=== PATIENT | female | born 1995 | race Caucasian/White ===

== ENCOUNTER 2024-01-21 16:27 | Inpatient (IN) | payer MEDICAID ==
[~2024-01-21] VITALS: Ht 162.6 cm; Wt 73.0 kg
[2024-01-21 17:20] VITALS: PULSE 72; RESP 28; O2SAT 97
[2024-01-21] MEDS: ONDANSETRON HCL 4 MG/2 ML VIAL IM ONE (17:28)
[2024-01-21 18:06] LABS: Alanine Aminotransferase 19 U/L (7-40); Albumin 4.8 g/dL (3.2-4.8); Alkaline Phosphatase 52 U/L (46-116); Anion Gap 16 (5-15); Aspartate Aminotransferase 13 U/L (13-40); BUN/Creatinine Ratio 13.3 (10.0-20.0); Basophils # (auto) 0 10 ^3/uL (0-0.2); Basophils % (auto) 0.2 % (0.0-2.0); Bilirubin, Total 1.3 mg/dL (0.2-1.0); Blood Urea Nitrogen 8 mg/dL (9-23); Calcium 10.3 mg/dL (8.5-10.1); Carbon Dioxide 15 mmol/L (20-30); Chloride 106 mmol/L (98-107); Eosinophils # (auto) 0 10 ^3/uL (0-0.8); Glucose 133 mg/dL (74-106); Hematocrit 41.8 % (36.0-46.0); Hemoglobin 14.4 g/dL (12.2-16.2); Lymphocytes # (auto) 1.9 10 ^3/uL (0.4-5.4); Lymphocytes % (auto) 12.5 % (10.0-50.0); Mean Corpuscular Hemoglobin 29.3 pg (28.0-32.0); Mean Corpuscular Hgb Conc. 34.4 g/dL (32.0-36.0); Mean Corpuscular Volume 85.2 fL (80.0-100.0); Monocytes # (auto) 0.7 10 ^3/uL (0-1.3); Monocytes % (auto) 4.8 % (0.0-12.0); Neutrophils # (auto) 12.3 10 ^3/uL (1.6-8.6); Neutrophils % (auto) 82.5 % (37.0-80.0); Nucleated Red Blood Cells % 0.1 %; Potassium 3.2 mmol/L (3.5-5.1); Red Cell Distribution Width 13.7 % (11.8-14.3); Sodium 137 mmol/L (136-145); White Blood Cell 14.9 10^3/uL (4.4-10.8)
[2024-01-21 18:16] LABS: Urine Bacteria FEW /hpf (None Seen); Urine Blood 2+ /uL (Negative); Urine Clarity Turbid (Clear); Urine Color Yellow (Yellow); Urine Mucus FEW (None Seen); Urine Protein, UAD 2+ (Negative); Urine Urobilinogen 2 mg/dL (Negative); Urine WBC 3 /hpf (0 - 5)
[2024-01-21 18:17] LABS: Lactic Acid w/Reflex 2.8 mmol/L (0.4-2.0)
[2024-01-21] MEDS: SODIUM CHLORIDE 0.9% 1,000 ML IV ONE ×2 (18:27→21:15)
[2024-01-21 18:28] LABS: Amphetamine Screen, Urine Neg (NEGATIVE)
[2024-01-21 18:29] LABS: Barbiturate Scree,Urine Neg (NEGATIVE); Benzodiazephine Screen, Urine Neg (NEGATIVE); Cannabinoid Screen, Urine Pos (NEGATIVE); Cocaine Screen, Urine Neg (NEGATIVE); Opiate Scree,Urine Neg (NEGATIVE); Phencyclidine Screen, Urine Neg (NEGATIVE)
[2024-01-21] MEDS ORDERED: CEPHALEXIN 250 MG CAP PO ONE (18:45)
[2024-01-21 20:10] VITALS: PULSE 59; RESP 15; O2SAT 99
[2024-01-21] MEDS: POTASSIUM CHL 20 Meq TABLET PO ONE (21:15)
[2024-01-21] MEDS: NITROFURANTOIN 100 mg CAP PO ONE (21:15)
[2024-01-21] MEDS: ONDANSETRON HCL 4 MG/2 ML VIAL IV ONE (22:09)
[2024-01-21 22:21] LABS: Lactic Acid w/Reflex 2.1 mmol/L (0.4-2.0)
[2024-01-22] VITALS (8 sets, daily range): BP systolic 94–111; BP diastolic 54–63; PULSE 57–91; RESP 14–21; TEMP 97.9–98.4; O2SAT 98–100
[2024-01-22] MEDS ORDERED: MORPHINE SULFATE INJ 2 MG/ml SYRG IV PRN (00:30)
[2024-01-22] MEDS ORDERED: DOCUSATE SOD 100 MG CAP PO PRN (00:30)
[2024-01-22] MEDS ORDERED: NITROGLYCERIN 0.4 MG SL TAB SL PRN (00:30)
[2024-01-22] MEDS ORDERED: ACETAMINOPHEN 500 MG TAB PO PRN (01:00)
[2024-01-22] MEDS: cefTRIAXone 1GM/50ML D5W 50 ML IV SCH (01:12)
[2024-01-22] MEDS: SODIUM CHLORIDE 0.9% 1,000 ML IV SCH (01:14)
[2024-01-22] MEDS: cefTRIAXone 1GM/50ML D5W 50 ML IV ONE (01:15)
[2024-01-22] MEDS: ONDANSETRON HCL 4 MG/2 ML VIAL IV PRN (09:38)
[2024-01-22] MEDS ORDERED: PREN-96 PO (10:21)
[2024-01-22] MEDS ORDERED: PROMETHAZINE HCL 6.25 MG/5 ML ORAL SYRUP PO PRN (11:15)
[2024-01-22] MEDS: FOLIC ACID 1 MG, MULTIPLE VITAMIN 10 ML, MAGNESIUM SULF SDV 50% 8 MEQ, THIAMINE INJ 100... INJ SCH (15:02)
[2024-01-22] MEDS ORDERED: PROCHLORPERAZINE EDISYLATE 5 MG/ML 2ML VIAL IV PRN (18:15)
[2024-01-22] MEDS: FAMOTIDINE 20 MG TAB PO SCH (21:59)
[2024-01-23] VITALS (7 sets, daily range): BP systolic 100–120; BP diastolic 53–71; PULSE 60–98; RESP 16–22; TEMP 97.6–99.4; O2SAT 98–100
[2024-01-23] MEDS: ONDANSETRON HCL 4 MG/2 ML VIAL IV PRN (01:54)
[2024-01-23 06:12] LABS: Basophils # (auto) 0.1 10 ^3/uL (0-0.2); Basophils % (auto) 0.5 % (0.0-2.0); Eosinophils # (auto) 0 10 ^3/uL (0-0.8); Eosinophils % (auto) 0.1 % (0.0-7.0); Hemoglobin 12.2 g/dL (12.2-16.2); Lymphocytes # (auto) 2.5 10 ^3/uL (0.4-5.4); Lymphocytes % (auto) 23.4 % (10.0-50.0); Mean Corpuscular Hemoglobin 30.7 pg (28.0-32.0); Mean Corpuscular Hgb Conc. 35.8 g/dL (32.0-36.0); Mean Corpuscular Volume 85.7 fL (80.0-100.0); Monocytes # (auto) 0.9 10 ^3/uL (0-1.3); Monocytes % (auto) 7.9 % (0.0-12.0); Neutrophils # (auto) 7.3 10 ^3/uL (1.6-8.6); Neutrophils % (auto) 68.1 % (37.0-80.0); Nucleated Red Blood Cells % 0.1 %; Red Blood Cells 3.97 10^6/uL (4.0-5.20); Red Cell Distribution Width 13.4 % (11.8-14.3); White Blood Cell 10.7 10^3/uL (4.4-10.8)
[2024-01-23 06:35] LABS: Alanine Aminotransferase 15 U/L (7-40); Albumin 3.6 g/dL (3.2-4.8); Alkaline Phosphatase 37 U/L (46-116); Anion Gap 5 (5-15); Aspartate Aminotransferase < 8 U/L (13-40); BUN/Creatinine Ratio 8.8 (10.0-20.0); Bilirubin, Total 0.8 mg/dL (0.2-1.0); Blood Urea Nitrogen 5 mg/dL (9-23); Calcium 8.6 mg/dL (8.7-10.4); Carbon Dioxide 21 mmol/L (20-30); Chloride 110 mmol/L (98-107); Glucose 87 mg/dL (74-106); Potassium 3.6 mmol/L (3.5-5.1); Sodium 136 mmol/L (136-145); Total Protein 6.1 g/dL (5.7-8.2)
[2024-01-23] MEDS: PYRIDOXINE HCL 50 MG TAB PO SCH (14:00)
[2024-01-23] MEDS ORDERED: PROC10TA6 PO (16:29)
[2024-01-23] MEDS ORDERED: ONDA-155 PO (16:29)
== END 2024-01-23 21:10 | disposition home or self-care (01) | DRG 566 ==
LOC: ER 16:27 → TELE 01-22 00:46 → TELE-WESTW 01-22 09:43
PROVIDERS: ADMIT Nurse Practitioner Family; ATTEND Nurse Practitioner Family
DX: O21.1 Hyperemesis gravidarum with metabolic disturbance (principal); O34.31 Maternal care for cervical incompetence, first trimester; O23.41 Unspecified infection of urinary tract in pregnancy, first trimester; E86.0 Dehydration; O99.891 Other specified diseases and conditions complicating pregnancy; O99.281 Endocrine, nutritional and metabolic diseases complicating pregnancy, first trimester; N39.0 Urinary tract infection, site not specified; O26.21 Pregnancy care for patient with recurrent pregnancy loss, first trimester; Z3A.01 Less than 8 weeks gestation of pregnancy; Z88.0 Allergy status to penicillin; D72.823 Leukemoid reaction
CPT/HCPCS: 36415; 76705; 76801; 80053; 80307; 81001; 82550; 83605; 83690; 84484; 84702; 85025; 87040; G0378; J2405

== ENCOUNTER 2024-07-27 11:53 | Observation (INO) | payer MEDICAID ==
[~2024-07-27] VITALS: Ht 162.6 cm; Wt 64.9 kg
[~2024-07-27 11:53] MED LIST: ONDA-155 PO; PREN-96 PO; PROC10TA6 PO
[2024-07-27 12:47] LABS: Urine Bacteria None Seen /hpf (None Seen)
--- NOTE | 2024-07-27 12:55 | DVH ---
CLINICAL HISTORY: -induced hypertension. COMPARISON: None TECHNIQUE: biophysical profile was performed. Transabdominal sonographic images of the fetus we re obtained. FINDINGS: The fetus is in cephalic position. heart rate measures 168 BPM. Amniotic fluid index measures 16.2 cm. The placenta is fundal/anterior in position evidence of placenta previa or abruptio n seen. BPP profile is an overall score of 8/8, with 2/2 points for breathing, with at least one episode of breathing over a 30 second duration during a 30 minute observation, 2/2 points for m ovements, with 3 or more discrete body or limb movements, 2/2 points for tone, with one or more episodes of extremity extension with return to flexion, or opening and closing of hand, and 2/ 2 points for amniotic fluid, with at least 1 pocket of amniotic fluid that measures 2 cm in 2 perpend icular planes. IMPRESSION: BPP score of 8/8.
[2024-07-27 13:14] LABS: Basophils # (auto) 0.1 10 ^3/uL (0-0.2); Basophils % (auto) 0.5 % (0.0-2.0); Eosinophils # (auto) 0.2 10 ^3/uL (0-0.8); Hematocrit 33.6 % (36.0-46.0); Lymphocytes # (auto) 1.6 10 ^3/uL (0.4-5.4); Lymphocytes % (auto) 14.5 % (10.0-50.0); Mean Corpuscular Hemoglobin 27.8 pg (28.0-32.0); Mean Corpuscular Hgb Conc. 32.6 g/dL (32.0-36.0); Mean Corpuscular Volume 85.1 fL (80.0-100.0); Monocytes % (auto) 8.7 % (0.0-12.0); Neutrophils # (auto) 8.4 10 ^3/uL (1.6-8.6); Neutrophils % (auto) 74.3 % (37.0-80.0); Nucleated Red Blood Cells % 0.1 %; Platelet Count (auto) 239 10^3/uL (140-450); Red Blood Cells 3.94 10^6/uL (4.0-5.20); Red Cell Distribution Width 14.7 % (11.8-14.3); White Blood Cell 11.3 10^3/uL (4.4-10.8)
[2024-07-27 13:16] LABS: Protein, Urine 19.6 mg/dL (1-14)
[2024-07-27 13:17] LABS: Urine Blood Negative /uL (Negative); Urine Clarity Clear (Clear); Urine Color Light-Yellow (Yellow); Urine Protein, UAD Negative (Negative); Urine Specific Gravity 1.021 (1.001-1.035); Urine Squamous Epithelial Cell FEW /hpf (<5); Urine Urobilinogen Normal (Negative); Urine WBC 2 /hpf (0 - 5)
[2024-07-27 13:18] LABS: Creatinine, Urine 70.29 mg/dL (30.0-125.0); Urine Protein/Creatinine Ratio 0.28
[2024-07-27 13:25] LABS: Amphetamine Screen, Urine Neg (NEGATIVE); Barbiturate Scree,Urine Neg (NEGATIVE); Benzodiazephine Screen, Urine Neg (NEGATIVE); Cocaine Screen, Urine Neg (NEGATIVE); Opiate Scree,Urine Neg (NEGATIVE); Phencyclidine Screen, Urine Neg (NEGATIVE)
[2024-07-27 13:27] LABS: INR 0.92 (0.9-1.15); Partial Thromboplastin Time 24.5 SEC (24.5-34.5); Prothrombin Time 9.8 sec (9.3-11.8)
[2024-07-27 13:29] LABS: Alanine Aminotransferase 14 U/L (7-40); Albumin 3.4 g/dL (3.2-4.8); Alkaline Phosphatase 118 U/L (46-116); Anion Gap 3 (5-15); Aspartate Aminotransferase 14 U/L (13-40); BUN/Creatinine Ratio 13.7 (10.0-20.0); Bilirubin, Total 0.4 mg/dL (0.2-1.0); Blood Urea Nitrogen 7 mg/dL (9-23); Calcium 9.4 mg/dL (8.7-10.4); Carbon Dioxide 23 mmol/L (20-31); Chloride 109 mmol/L (98-107); Glucose 89 mg/dL (74-106); Potassium 3.7 mmol/L (3.5-5.1); Sodium 135 mmol/L (136-145); Uric Acid 3.9 mg/dL (3.1-7.8)
[2024-07-27 13:50] LABS: Cannabinoid Screen, Urine Neg (NEGATIVE)
--- NOTE | 2024-07-27 15:01 | DVHDS2 ---
Physician Discharge Progress N Final Diagnosis: pih ruled out Operations or Procedures: Operations or Procedures nst,sono,labs Condition on Discharge: Good Disposition: Home Discharge Instructions: Diet: Regular Activity: Light activity Medications: na Follow Up Care: Specialist: 4d Discharge Statement: "Patient was advised to return to the ER or call 911 if any headaches, dizziness, shortness of breath, chest pain, abdominal pain, bleeding, fevers, or worsening of medical condition. Patient was counseled about treatment plan, medications, possible side effects, patientverbalized understanding. All questions were answered to the best of my ability. This discharge took greater then 30 minutes in planning, reviewing documentation, counseling the patient, and discussing with other team members." SHOAIB SALDIVAR DO Jul 27, 2024 15:01
== END 2024-07-27 14:25 | disposition home or self-care (01) ==
LOC: LDRP 11:53
PROVIDERS: ADMIT Obstetrics & Gynecology; ATTEND Obstetrics & Gynecology
DX: O13.3 Gestational [pregnancy-induced] hypertension without significant proteinuria, third trimester (principal); Z3A.33 33 weeks gestation of pregnancy; Z79.899 Other long term (current) drug therapy; Z98.890 Other specified postprocedural states
CPT/HCPCS: 36415; 59025; 76818; 80053; 80307; 81001; 81002; 82570; 84156; 84550; 85025; 85610; 85730; 94760; G0378

== ENCOUNTER 2024-07-31 04:30 | Observation (INO) | payer MEDICAID ==
--- NOTE | 2024-07-31 09:58 | DVH ---
BIOPHYSICAL PROFILE HISTORY: PIH TECHNIQUE: Multiple transabdominal real-time grayscale sonographic images through the gravid uterus o f the fetus with duplex doppler color flow and M-mode spectral analysis FINDINGS: BIOPHYSICAL PROFILE: breathing score: 2 movement score: 2 tone score: 2 Quantitative ANNY score: 2 (ANNY: 14.2 cm.) Total score: 8/8 The cervix is not seen. Single live fetus in cephalic presentation. heart rate 132 beats per minute. Grade 2 anterior placenta without previa or abruption Biophysical profile score 8/8 corresponding to an PHILIPPE of 09/08/24 IMPRESSION: Biophysical profile score: 8/8
--- NOTE | 2024-07-31 10:29 | DVHDS2 ---
Physician Discharge Progress N Final Diagnosis: PIH RULED OUT Operations or Procedures: Operations or Procedures NST,SONPO Condition on Discharge: Good Disposition: Home Discharge Instructions: Diet: Cardiac 2g Na,low cholest Activity: No Restrictions, As Tolerated Medications: NA Follow Up Care: Specialist: 4D Discharge Statement: "Patient was advised to return to the ER or call 911 if any headaches, dizziness, shortness of breath, chest pain, abdominal pain, bleeding, fevers, or worsening of medical condition. Patient was counseled about treatment plan, medications, possible side effects, patientverbalized understanding. All questions were answered to the best of my ability. This discharge took greater then 30 minutes in planning, reviewing docu mentation, counseling the patient, and discussing with other team members." SHOAIB SALDIVAR DO Jul 31, 2024 10:29
== END 2024-07-31 09:55 | disposition home or self-care (01) ==
LOC: LDRP 08:05
PROVIDERS: ADMIT Obstetrics & Gynecology; ATTEND Obstetrics & Gynecology
DX: O13.3 Gestational [pregnancy-induced] hypertension without significant proteinuria, third trimester (principal); Z98.890 Other specified postprocedural states; Z79.899 Other long term (current) drug therapy; Z88.0 Allergy status to penicillin; Z3A.34 34 weeks gestation of pregnancy
CPT/HCPCS: 59025; 76818; 81002; 94760; G0378

== ENCOUNTER 2024-08-07 19:01 | Observation (INO) | payer MEDICAID ==
--- NOTE | 2024-08-07 19:42 | DVH ---
Procedure: US BIOPHYSICAL PROFILE 08/07/2024 07:10 PM Indication: PIH Comparison: US BIOPHYSICAL PROFILE on DOS: 07/31/24, US BIOPHYSICAL PROFILE on DOS: 07/27/24 Technique: Sonogram of gravid uterus utilizing grayscale and color techniques. FINDINGS: Single living intrauterine gestation. Presentation: Cephalic Placenta: Anterior, no previa or abruption heart rate: 143 bpm ANNY: 15.1 cm, DVP: 4.3 cm Maternal cervix: Not visualized Biophysical Profile: breathing score: 2 movement score: 2 tone: 2 Quantitative ANNY score: 2 Total score: 8/8 IMPRESSION: 1. Single living as above. 2. Biophysical profile score: 8/8.
--- NOTE | 2024-08-08 06:28 | DVHDS2 ---
Obstetrics Discharge Summary Obstetrics Discharge Summary Date of Admission: Aug 07, 2024 Date of Discharge: Aug 07, 2024 Reason For Admission: Observational/Evaluation (Medical Complications) Discharge Diagnosis: Others (PIH stable reasuring FHT maternal and reasurance) Discharge Information: Activity (Unrestricted), Diet, Medications (None), Instructions (Routine), Discharge to (Home), Discarge date (08/07/2024) DESI MELLO DO Aug 08, 2024 06:28
== END 2024-08-07 20:41 | disposition home or self-care (01) ==
LOC: LDRP 19:01
PROVIDERS: ADMIT Obstetrics & Gynecology; ATTEND Obstetrics & Gynecology
DX: O13.3 Gestational [pregnancy-induced] hypertension without significant proteinuria, third trimester (principal); O26.893 Other specified pregnancy related conditions, third trimester; R22.42 Localized swelling, mass and lump, left lower limb; Z3A.35 35 weeks gestation of pregnancy; Z79.899 Other long term (current) drug therapy; Z98.890 Other specified postprocedural states
CPT/HCPCS: 59025; 76818; 81002; 94760; G0378

== ENCOUNTER 2024-08-10 08:05 | Observation (INO) | payer MEDICAID ==
[~2024-08-10] VITALS: Ht 162.6 cm; Wt 112.5 kg
[2024-08-10 09:03] LABS: Urine Bacteria None Seen /hpf (None Seen)
[2024-08-10 09:21] LABS: Urine Blood Negative /uL (Negative); Urine Clarity Turbid (Clear); Urine Color Light-Yellow (Yellow); Urine Mucus FEW (None Seen); Urine Protein, UAD TRACE (Negative); Urine Specific Gravity 1.024 (1.001-1.035); Urine Squamous Epithelial Cell MOD /hpf (<5); Urine Urobilinogen Normal (Negative); Urine WBC 8 /HPF (0-5)
--- NOTE | 2024-08-10 09:43 | DVHDS2 ---
Physician Discharge Progress N Final Diagnosis: thc pos per hx pih Operations or Procedures: Operations or Procedures nsts,sono,labs Condition on Discharge: Good Disposition: Home Discharge Instructions: Diet: Regular Activity: No Restrictions, As Tolerated Medications: na Follow Up Care: Specialist: 1w Discharge Statement: "Patient was advised to return to the ER or call 911 if any headaches, dizziness, shortness of breath, chest pain, abdominal pain, bleeding, fevers, or worsening of medical condition. Patient was counseled about treatment plan, medications, possible side effects, patientverbalized understanding. All questions were answered to the best of my ability. This discharge took greater then 30 minutes in planning, reviewing documentati on, counseling the patient, and discussing with other team members." SHOAIB SALDIVAR DO Aug 10, 2024 09:43
[2024-08-10 09:51] LABS: Basophils # (auto) 0.1 10 ^3/uL (0-0.2); Basophils % (auto) 0.5 % (0.0-2.0); Eosinophils # (auto) 0.3 10 ^3/uL (0-0.8); Eosinophils % (auto) 2.3 % (0.0-7.0); Hematocrit 31.5 % (36.0-46.0); Hemoglobin 10.5 g/dL (12.2-16.2); Lymphocytes # (auto) 1.8 10 ^3/uL (0.4-5.4); Lymphocytes % (auto) 14.6 % (10.0-50.0); Mean Corpuscular Hemoglobin 27.7 pg (28.0-32.0); Mean Corpuscular Hgb Conc. 33.5 g/dL (32.0-36.0); Mean Corpuscular Volume 82.7 fL (80.0-100.0); Monocytes # (auto) 0.8 10 ^3/uL (0-1.3); Monocytes % (auto) 6.1 % (0.0-12.0); Neutrophils # (auto) 9.5 10 ^3/uL (1.6-8.6); Neutrophils % (auto) 76.5 % (37.0-80.0); Platelet Count (auto) 224 10^3/uL (140-450); Red Blood Cells 3.81 10^6/uL (4.0-5.20); Red Cell Distribution Width 14.6 % (11.8-14.3); White Blood Cell 12.4 10^3/uL (4.4-10.8)
--- NOTE | 2024-08-10 09:53 | DVH ---
Procedure: US BIOPHYSICAL PROFILE 08/10/2024 09:06 AM Indication: PIH Comparison: US BIOPHYSICAL PROFILE on DOS: 08/07/24, US BIOPHYSICAL PROFILE on DOS: 07/31/24, US BIOPHY SICAL PROFILE on DOS: 07/27/24 Technique: Sonogram of gravid uterus utilizing grayscale and color techniques. FINDINGS: Single living intrauterine gestation. Presentation: Cephalic Placenta: Anterior, grade 1 heart rate: 129 bpm ANNY: 19.6 cm, previously 15.1 cm Maternal cervix: Not visualized Biophysical Profile: breathing score: 2 movement score: 2 tone: 2 Quantitative ANNY score: 2 Total score: 8/8 IMPRESSION: 1. Single living as above. 2. Biophysical profile score: 8/8.
[2024-08-10 09:58] LABS: Protein, Urine 30.4 mg/dL (1-14)
[2024-08-10 10:01] LABS: Creatinine, Urine 132.37 mg/dL (30.0-125.0); Urine Protein/Creatinine Ratio 0.23
[2024-08-10 10:03] LABS: Alanine Aminotransferase 10 U/L (7-40); Albumin 3.3 g/dL (3.2-4.8); Anion Gap 9 (5-15); BUN/Creatinine Ratio 15.1 (10.0-20.0); Bilirubin, Total 0.4 mg/dL (0.2-1.0); Calcium 8.8 mg/dL (8.7-10.4); Carbon Dioxide 21 mmol/L (20-31); Chloride 106 mmol/L (98-107); Glucose 89 mg/dL (74-106); Potassium 3.5 mmol/L (3.5-5.1)
[2024-08-10 10:13] LABS: INR 0.91 (0.9-1.15); Partial Thromboplastin Time 25.4 SEC (24.5-34.5); Prothrombin Time 9.7 sec (9.3-11.8)
[2024-08-10 10:16] LABS: Alkaline Phosphatase 145 U/L (46-116); Aspartate Aminotransferase < 8 U/L (13-40); Blood Urea Nitrogen 8 mg/dL (9-23); Sodium 136 mmol/L (136-145); Total Protein 5.5 g/dL (5.7-8.2)
[2024-08-10 10:26] LABS: Uric Acid 4.9 mg/dL (3.1-7.8)
== END 2024-08-10 10:32 | disposition home or self-care (01) ==
LOC: UNDOADMOB 08:05 → LDRP 08:05 → UNDODISOB 10:32
PROVIDERS: ADMIT Obstetrics & Gynecology; ATTEND Obstetrics & Gynecology
DX: O13.3 Gestational [pregnancy-induced] hypertension without significant proteinuria, third trimester (principal); Z79.899 Other long term (current) drug therapy; Z3A.35 35 weeks gestation of pregnancy
CPT/HCPCS: 36415; 59025; 76818; 80053; 81001; 81002; 82570; 84156; 84550; 85025; 85610; 85730; 94760; G0378

== ENCOUNTER 2024-08-14 08:02 | Observation (INO) | payer MEDICAID ==
--- NOTE | 2024-08-14 08:49 | DVH ---
BIOPHYSICAL PROFILE HISTORY: pih Comparison Study: 08/10/2024 TECHNIQUE: Multiple real-time grayscale sonographic images through the gravid uterus of the fetus wi th duplex Doppler color flow and M-mode spectral analysis FINDINGS: BIOPHYSICAL PROFILE: breathing score: 2 movement score: 2 tone score: 2 Quantitative ANNY score: 2 (ANNY: 20.5 Cm.) Total score: 8 The cervix is not visualized Single live fetus in cephalic presentation. heart rate 140 beats per minute. Anterior placenta without previa or abruption IMPRESSION: Biophysical profile score: 8
--- NOTE | 2024-08-14 10:59 | DVHDS2 ---
Physician Discharge Progress N Final Diagnosis: pih Operations or Procedures: Operations or Procedures nst,sono Condition on Discharge: Good Disposition: Home Discharge Instructions: Diet: Regular Activity: No Restrictions, As Tolerated Medications: na Follow Up Care: Specialist: 3d Discharge Statement: "Patient was advised to return to the ER or call 911 if any headaches, dizziness, shortness of breath, chest pain, abdominal pain, bleeding, fevers, or worsening of medical condition. Patient was counseled about treatment plan, medications, possible side effects, patientverbalized understanding. All questions were answered to the best of my ability. This discharge took greater then 30 minutes in planning, reviewing documentation, counseling the patient, and discussing with other team members." SHOAIB SALDIVAR DO Aug 14, 2024 10:59
== END 2024-08-14 10:01 | disposition home or self-care (01) ==
LOC: LDRP 08:02
PROVIDERS: ADMIT Obstetrics & Gynecology; ATTEND Obstetrics & Gynecology
DX: O13.3 Gestational [pregnancy-induced] hypertension without significant proteinuria, third trimester (principal); Z98.890 Other specified postprocedural states; Z79.899 Other long term (current) drug therapy; Z3A.36 36 weeks gestation of pregnancy
CPT/HCPCS: 59025; 76818; 81002; 94760; G0378

== ENCOUNTER 2024-08-15 17:29 | Observation (INO) | payer MEDICAID ==
[~2024-08-15] VITALS: Ht 162.6 cm; Wt 130.0 kg
[2024-08-15 17:39] VITALS: BP 130/80; PULSE 109; RESP 16; O2SAT 97
--- NOTE | 2024-08-15 17:45 | ED.PDOC ---
History of Present Illness HPI Comments This is a 29-year-old female who is approximately 38 weeks who came in with chief complaint of shortness for breath as well as headache and nausea and vomiting. The patient's blood pressure has been somewhat high home. She states that it was 150/100. Upon arrival it was 130/80 the patient was the patient was Dr. Glynn Chief Complaint: Shortness of Breath Time Seen by MD: 17:31 Primary Care Provider: NONE Reviewed Notes: Nurses Notes, Medications, Allergies (Allergies listed above) Allergies: Coded Allergies: Amoxicillin (Verified Allergy, Unknown, 01/04/16) Erythromycin (Verified Allergy, Unknown, 08/07/24) Penicillins (Verified Allergy, Unknown, 01/04/16) Home Meds Active Scripts Prochlorperazine Maleate (Compazine) 10 Mg Tb, 1 TAB PO Q6HR PRN for 15 Days, #60 TAB 3 Refills Prov:PHILL HESTER RESIDENT 01/23/24 Ondansetron HCl (Ondansetron) 4 Mg Tab, 4 MG PO DAILYPRN PRN for 30 Days, #30 TAB 2 Refills Prov:PHILL HESTER RESIDENT 01/23/24 Reported Medications Vit W/ Ferrous Fumara ( One Daily) Daily Tab, 1 TAB PO DAILY, #30 TAB 11 Refills 01/22/24 Information Source: Patient, Significant Other Mode of Arrival: Wheelchair Severity: Moderate Timing: Hours Duration: Since onset Prehospital treatment: None Associated signs and symptoms Increase blood pressure as well as nausea, vomiting, abdominal pain and shortnes s a breath Past Medical History PAST MEDICAL HISTORY: Denies Surgical History: Denies all surgeries CLOTH BIN PACKER History: No Pertinent CLOTH B[employer] PACKER History Family History Family History: Family hx of DM, Family hx of Cancer Social History Smoker: Non-Smoker Alcohol: Denies ETOH Use Drugs: Denies Drug Use Lives In: Home Constitutional: denies: chills, diaphoresis, fatigue, fever, malaise, sweats, weakness, others EENTM: denies: blurred vision, double vision, ear bleeding, ear discharge, ear drainage, ear pain, ear ringing, eye pain, eye redness, hearing loss, mouth pain, mouth swelling, nasal discharge, nose bleeding, nose congestion, nose pain, photophobia, tearing, throat pain, throat swelling, voice changes, others Respiratory: reports: shortness of breath; denies: cough, hemoptysis, orthopnea, SOB at rest, SOB with excertion, stridor, wheezing, others Cardiovascular: denies: chest pain, dizzy spells, diaphoresis, Dyspnea on exertion, edema, irregular heart beat, left arm pain, lightheadedness, palpitations, PND, syncope, others Gastrointestinal: reports: abdominal pain, nausea, vomiting; denies: abdomen distended, blood streaked bowels, constipated, diarrhea, dysphagia, difficulty swallowing, hematemesis, melena, poor appetite, poor fluid intake, rectal bleeding, rectal pain, others Genitourinary: reports: ; denies: abnormal vagina bleeding, burning, dyspareunia, dysuria, flank pain, frequency, hematuria, incontinence, pain, vagina discharge, urgency, others Neurological: reports: headache; denies: dizziness, fainting, left sided numbne ss, left sided weakness, numbness, paresthesia, pre-existing deficit, right sided numbness, right sided weakness, seizure, speech problems, tingling, tremors, weakness, others Musculoskeletal: denies: back pain, gout, joint pain, joint swelling, muscle pain, muscle stiffness, neck pain, others Integumetry: denies: bruises, change in color, change in hair/nails, dryness, laceration, lesions, lumps, rash, wounds, others Allergic/Immunocompromised: denies: Difficulty Healing, Frequent Infections, Hives, Itching, others Hematologic/Lymphatic: denies: anemia, blood clots, easy bleeding, easy bruising, swollen glands, others Endocrine: denies: excessive hunger, excessive sweating, excessive thirst, excessive urination, flushing, intolerance to cold, intolerance to heat, unexplained weight gain, unexplained weight loss, others Psychiatric: denies: anxiety, bipolar disorder, depression, hopeless, panic disorder, schizophrenia, sleepless, suicidal, others Physical Exam General Appearance: Mild Distress, Obese HEENT: Normal ENT Inspection, Pharynx Normal, TMs Normal Neck: Full Range of Motion, Non-Tender, Normal, Normal Inspection Respiratory: Chest Non-Tender, Lungs Clear, No Accessory Muscle Use, No Respiratory Distress, Normal Breath Sounds Cardiovascular: No Edema, No JVD, No Murmur, No Gallop, Normal Peripheral Pulses, Regular Rate/Rhythm Breast Exam: Deferred Gastrointestinal: Non Tender, Other (Gravid uterus) Genitalia: Deferred Pelvic: Deferred Rectal: Deferred Extremities: No calf tenderness, Normal capillary refill, Normal inspection, Normal range of motion, Non-tender, No pedal edema Musculoskeletal : Apperance: Normal Neurologic: Alert, mosaic worker II-XII nml as Tested, No Motor Deficits, Normal Affect, Normal Mood, No Sensory Deficits Cerebellar Function: Normal Reflexes: Normal Skin: Dry, Normal Color, Warm Lymphatic: No Adenopathy Was a procedure done? Was a procedure done?: No Differential Dx Considerations may include: Abdominal pain in , vomiting, shortness for breath X-Ray, Labs, Meds, VS The patient was cleared from the emergency department's The patient was being discharged to labor and delivery at 38 weeks Time of 1ST Reevaluation: 17:44 Reevaluation 1ST: Improved Patient Education/Counseling: Diagnosis, Treatment, Prognosis Family Education/Counseling: Diagnosis, Treatment, Prognosis Departure 1 Departure Time of Disposition: 17:45 Impression: Primary Impression: Nausea and vomiting Qualified Codes: R11.2 - Nausea with vomiting, unspecified Additional Impression: Intrauterine Disposition: 01 HOME / SELF CARE / HOMELESS Condition: Fair Critical Care Note Critical Care Time?: No Stability Stability form required: No Heart Score Heart Score: Heart Score Response (Comments) Value History N/A 0 EKG N/A 0 Age N/A 0 Risk Factors N/A 0 Troponin N/A 0 Total 0 GERMAN DRUMMOND MD Aug 15, 2024 17:45
[2024-08-15 20:26] LABS: Basophils # (auto) 0.1 10 ^3/uL (0-0.2); Basophils % (auto) 0.5 % (0.0-2.0); Eosinophils # (auto) 0.2 10 ^3/uL (0-0.8); Eosinophils % (auto) 1.9 % (0.0-7.0); Hematocrit 30.1 % (36.0-46.0); Lymphocytes # (auto) 1.8 10 ^3/uL (0.4-5.4); Mean Corpuscular Hemoglobin 27.6 pg (28.0-32.0); Mean Corpuscular Hgb Conc. 33.4 g/dL (32.0-36.0); Mean Corpuscular Volume 82.8 fL (80.0-100.0); Monocytes # (auto) 0.9 10 ^3/uL (0-1.3); Monocytes % (auto) 8.3 % (0.0-12.0); Neutrophils # (auto) 8.1 10 ^3/uL (1.6-8.6); Neutrophils % (auto) 73.3 % (37.0-80.0); Platelet Count (auto) 260 10^3/uL (140-450); Red Blood Cells 3.63 10^6/uL (4.0-5.20); Red Cell Distribution Width 14.7 % (11.8-14.3)
[2024-08-15 20:29] LABS: Urine Bacteria FEW /hpf (None Seen); Urine Blood Negative /uL (Negative); Urine Clarity Turbid (Clear); Urine Color Light-Yellow (Yellow); Urine Mucus FEW (None Seen); Urine Protein, UAD TRACE (Negative); Urine Specific Gravity 1.022 (1.001-1.035); Urine Squamous Epithelial Cell FEW /hpf (<5); Urine Urobilinogen Normal (Negative); Urine WBC 2 /HPF (0-5)
[2024-08-15 20:42] LABS: INR 0.9 (0.9-1.15); Partial Thromboplastin Time 24.6 SEC (24.5-34.5); Prothrombin Time 9.6 sec (9.3-11.8)
[2024-08-15 20:45] LABS: Alanine Aminotransferase 14 U/L (7-40); Amylase 45 U/L (30-118); Anion Gap 8 (5-15); Aspartate Aminotransferase 15 U/L (13-40); BUN/Creatinine Ratio 16.1 (10.0-20.0); Calcium 9.5 mg/dL (8.7-10.4); Carbon Dioxide 21 mmol/L (20-31); Chloride 106 mmol/L (98-107); Glucose 97 mg/dL (74-106); Lipase 35 U/L (12-53); Potassium 3.7 mmol/L (3.5-5.1); Uric Acid 5.3 mg/dL (3.1-7.8)
[2024-08-15 20:46] LABS: Bilirubin, Total 0.4 mg/dL (0.2-1.0); Total Protein 5.8 g/dL (5.7-8.2)
[2024-08-15 20:52] LABS: Albumin 3.2 g/dL (3.2-4.8); Alkaline Phosphatase 146 U/L (46-116); Blood Urea Nitrogen 9 mg/dL (9-23); Sodium 135 mmol/L (136-145)
[2024-08-15 20:56] LABS: Protein, Urine 24.9 mg/dL (1-14)
[2024-08-15 20:59] LABS: Creatinine, Urine 124.9 mg/dL (30.0-125.0); Urine Protein/Creatinine Ratio 0.2
--- NOTE | 2024-08-15 21:25 | DVHDS2 ---
Physician Discharge Progress N Final Diagnosis: IUP 36 wk, acute N/V Gestational HTN Secondary Diagnosis: Encounter for surveillance Operations or Procedures: Operations or Procedures NST category 1 Labs reviewed, all WNL Condition on Discharge: Stable Disposition: Home Discharge Instructions: Diet: Regular Activity: Light activity Follow Up/Referral: as scheduled Medications: N/A Follow Up Care: Discharge Statement: "Patient was advised to return to the ER or call 911 if any headaches, dizziness, shortness of breath, chest pain, abdominal pain, bleeding, fevers, or worsening of medical condition. Patient was counseled about treatment plan, medications, possible side effects, patientverbalized understanding. All questions were answered to the best of my ability. This discharge took greater then 30 minutes in planning, reviewing docu mentation, counseling the patient, and discussing with other team members." ZITA PEDERSON DO Aug 15, 2024 21:25
== END 2024-08-15 22:09 | disposition home or self-care (01) ==
LOC: ER 17:29 → LDRP 17:48 → UNDODISOB 22:09 → LDRP 23:11
PROVIDERS: ADMIT Obstetrics & Gynecology; ATTEND Obstetrics & Gynecology
DX: O21.2 Late vomiting of pregnancy (principal); O13.3 Gestational [pregnancy-induced] hypertension without significant proteinuria, third trimester; Z88.1 Allergy status to other antibiotic agents; Z79.899 Other long term (current) drug therapy; Z3A.36 36 weeks gestation of pregnancy
CPT/HCPCS: 36415; 59025; 80053; 81001; 81002; 82150; 82570; 83605; 83690; 84156; 84550; 85025; 85610; 85730; 94762; G0378

== ENCOUNTER 2024-08-17 07:55 | Observation (INO) | payer MEDICAID ==
[~2024-08-17] VITALS: Ht 162.6 cm; Wt 117.9 kg
--- NOTE | 2024-08-17 08:41 | DVH ---
BIOPHYSICAL PROFILE HISTORY: PIH Comparison Study: 08/14/2019 TECHNIQUE: Multiple real-time grayscale sonographic images through the gravid uterus of the fetus wi th duplex Doppler color flow and M-mode spectral analysis FINDINGS: BIOPHYSICAL PROFILE: breathing score: 2 movement score: 2 tone score: 2 Quantitative ANNY score: 2 (ANNY: 19.7 Cm.) Total score: 8 The cervix is not visualized Single live fetus in cephalic presentation. heart rate 141 beats per minute. Grade 2, anterior placenta without previa or abruption IMPRESSION: Biophysical profile score: 8
--- NOTE | 2024-08-17 10:08 | DVHDS2 ---
Physician Discharge Progress N Final Diagnosis: pih ruled out,thc use in preg Operations or Procedures: Operations or Procedures nst,sono,labs Condition on Discharge: Good Disposition: Home Discharge Instructions: Diet: Regular Activity: Light activity Medications: na Follow Up Care: Specialist: w Discharge Statement: "Patient was advised to return to the ER or call 911 if any headaches, dizziness, shortness of breath, chest pain, abdominal pain, bleeding, fevers, or worsening of medical condition. Patient was counseled about treatment plan, medications, possible side effects, patientverbalized understanding. All questions were answered to the best of my ability. This discharge took greater then 30 minutes in planning, reviewing documentation, counseling the patient, and discussing with other team members." Visit Coding OBGYN Date of Service: Aug 17, 2024 Billing Provider: SHOAIB SALDIVAR DO EMERGENCY DEPARTMENT TECHNICIAN Common Visit Codes: 98546-[id number] OBS CARE (MOD), [id number] OBS CARE (HIGH) SHOAIB SALDIVAR DO Aug 17, 2024 10:08
== END 2024-08-17 09:42 | disposition home or self-care (01) ==
LOC: LDRP 07:58
PROVIDERS: ADMIT Obstetrics & Gynecology; ATTEND Obstetrics & Gynecology
DX: O99.323 Drug use complicating pregnancy, third trimester (principal); F12.90 Cannabis use, unspecified, uncomplicated; O26.893 Other specified pregnancy related conditions, third trimester; R51.9 Headache, unspecified; Z87.891 Personal history of nicotine dependence; Z3A.36 36 weeks gestation of pregnancy; Z88.0 Allergy status to penicillin; Z88.5 Allergy status to narcotic agent; Z79.899 Other long term (current) drug therapy
CPT/HCPCS: 59025; 76818; 81002; 94760; G0378

== ENCOUNTER 2024-08-21 08:07 | Observation (INO) | payer MEDICAID ==
--- NOTE | 2024-08-21 08:59 | DVH ---
BIOPHYSICAL PROFILE HISTORY: PIH TECHNIQUE: Multiple transabdominal real-time grayscale sonographic images through the gravid uterus of the fetus with duplex Doppler color flow and M-mode spectral analysis FINDINGS: BIOPHYSICAL PROFILE: breathing score: 2 movement score: 2 tone score: 2 Quantitative ANNY score: 2 (ANNY: 17.4 cm.) Total score: 8/8 Single live fetus in cephalic presentation. heart rate 136 beats per minute. Anterior placenta without previa or abruption IMPRESSION: 1. Biophysical profile score: 8/8
--- NOTE | 2024-08-21 12:44 | DVHDS2 ---
Physician Discharge Progress N Final Diagnosis: PIH,DRUG USE Operations or Procedures: Operations or Procedures NST,SONO Condition on Discharge: Good Disposition: Home Discharge Instructions: Diet: Regular Activity: No Restrictions, As Tolerated Follow Up/Referral: return to birthplace on Thursday at 7:00 am for Induction of labor. Medications: NA Follow Up Care: Specialist: INDUCTION THURSDAY Discharge Statement: "Patient was advised to return to the ER or call 911 if any headaches, dizziness, shortness of breath, chest pain, abdominal pain, bleeding, fevers, or worsening of medical condition. Patient was counseled about treatment plan, medications, possible side effects, patientverbalized understanding. All questions were answered to the best of my ability. This discharge took greater then 30 minutes in planning, reviewing documentation, counseling the patient, and discussing with other team members." Visit Coding OBGYN Date of Service: Aug 21, 2024 Billing Provider: SHOAIB SALDIVAR DO CONSTRUCTION HELPER Common Visit Codes: [id number]-[id number]/OBS DISCH DAY <30MIN SHOAIB SALDIVAR DO Aug 21, 2024 12:44
== END 2024-08-21 09:39 | disposition home or self-care (01) ==
LOC: LDRP 08:07
PROVIDERS: ADMIT Obstetrics & Gynecology; ATTEND Obstetrics & Gynecology
DX: O13.3 Gestational [pregnancy-induced] hypertension without significant proteinuria, third trimester (principal); Z3A.37 37 weeks gestation of pregnancy; Z79.899 Other long term (current) drug therapy; Z98.890 Other specified postprocedural states
CPT/HCPCS: 59025; 76818; 81002; 94760; G0378

== ENCOUNTER 2024-08-23 19:13 | Inpatient (IN) | payer MEDICAID ==
[~2024-08-23] VITALS: Ht 162.6 cm; Wt 117.9 kg
[2024-08-23] MEDS ORDERED: PHISODERM TOP SOLN 240ML BTL TOP PRN (20:00)
[2024-08-23] MEDS ORDERED: WITCH HAZEL-GLYCERIN PAD TOP PRN (20:00)
[2024-08-23] MEDS ORDERED: DERMOPLAST 60ML BOTTLE TOP PRN (20:00)
[2024-08-23] MEDS ORDERED: NALBUPHINE HCL 10 MG/1ml INJECTION IV PRN (20:00)
[2024-08-23] MEDS ORDERED: LIDOCAINE 2%HCL (LOCAL ANESTH.) INJ 20ML MDV IJ PRN (20:00)
[2024-08-23 20:47] LABS: Eosinophils # (auto) 0.2 10 ^3/uL (0-0.8); Lymphocytes # (auto) 1.6 10 ^3/uL (0.4-5.4); Monocytes # (auto) 0.9 10 ^3/uL (0-1.3); Nucleated Red Blood Cells % 0.1 %; Red Cell Distribution Width 14.9 % (11.8-14.3)
[2024-08-23 20:48] LABS: Basophils # (auto) 0.1 10 ^3/uL (0-0.2); Basophils % (auto) 0.6 % (0.0-2.0); Eosinophils % (auto) 1.9 % (0.0-7.0); Hematocrit 31.5 % (36.0-46.0); Hemoglobin 10.4 g/dL (12.2-16.2); Lymphocytes % (auto) 14.2 % (10.0-50.0); Mean Corpuscular Hemoglobin 26.7 pg (28.0-32.0); Mean Corpuscular Hgb Conc. 32.9 g/dL (32.0-36.0); Mean Corpuscular Volume 81.3 fL (80.0-100.0); Monocytes % (auto) 7.9 % (0.0-12.0); Neutrophils # (auto) 8.3 10 ^3/uL (1.6-8.6); Neutrophils % (auto) 75.4 % (37.0-80.0); Platelet Count (auto) 267 10^3/uL (140-450); Red Blood Cells 3.87 10^6/uL (4.0-5.20)
[2024-08-23 20:58] LABS: Urine Bacteria FEW /hpf (None Seen); Urine Blood Negative /uL (Negative); Urine Budding Yeast OCCASIONAL /hpf (None Seen); Urine Clarity Turbid (Clear); Urine Color Yellow (Yellow); Urine Hyaline Cast FEW /lpf (0 - 2); Urine Mucus FEW (None Seen); Urine Protein, UAD 2+ (Negative); Urine Specific Gravity 1.034 (1.001-1.035); Urine Squamous Epithelial Cell MOD /hpf (<5); Urine Urobilinogen 3 mg/dL (Negative); Urine WBC 2 /HPF (0-5)
[2024-08-23 21:06] LABS: Alanine Aminotransferase 13 U/L (7-40); Albumin 3.4 g/dL (3.2-4.8); Anion Gap 5 (5-15); Aspartate Aminotransferase 15 U/L (13-40); Bilirubin, Total 0.5 mg/dL (0.2-1.0); Calcium 9.3 mg/dL (8.7-10.4); Carbon Dioxide 25 mmol/L (20-31); Chloride 107 mmol/L (98-107); Glucose 75 mg/dL (74-106); INR 0.9 (0.9-1.15); Partial Thromboplastin Time 24.8 SEC (24.5-34.5); Potassium 3.6 mmol/L (3.5-5.1); Prothrombin Time 9.6 sec (9.3-11.8); Sodium 137 mmol/L (136-145); Total Protein 5.9 g/dL (5.7-8.2); Uric Acid 5.8 mg/dL (3.1-7.8)
[2024-08-23] MEDS: LACTATED RINGER'S 1,000 ML IV SCH (21:42)
[2024-08-23 21:55] LABS: Alkaline Phosphatase 157 U/L (46-116); Blood Urea Nitrogen 7 mg/dL (9-23)
[2024-08-23] MEDS ORDERED: miSOPROStol 50 MCG per PRE-CUT 1/2 TAB PO PRN (22:00)
--- NOTE | 2024-08-23 23:41 | DVH ---
OB ULTRASOUND, LIMITED CLINICAL INDICATION: pih TECHNIQUE: Multiple grayscale ultrasound and M-mode images were obtained of the pelvis for evaluation of intrauterine . COMPARISON: None FINDINGS: Biophysical profile 02/17 breathin movements: 2 tone: 2 Amniotic Fluid: 2, ANNY 19.0 cm heart rate: 132 position: Vertex Placenta location: Fundal IMPRESSION: Biophysical profile 02/17
[2024-08-24] MEDS ORDERED: LABE100T7 PO (00:20)
[2024-08-24] MEDS: LABETALOL HCL 200 MG TAB PO STA (00:40)
--- NOTE | 2024-08-24 01:41 | DVHDS2 ---
Physician Discharge Progress N Final Diagnosis: testing for preeclampsia Operations or Procedures: Operations or Procedures S: 29yo IUP@37.5wks presents for NST/BPP and possible IOL for preeclampsia. Denies UCs/LOF/VB/REAGAN/vision changes/RUQ pain. Endorses +FM. PNC with Dr. Glynn at [facility] OB, complicated by THC use, anemia, and preeclampsia. GTT wnl and GBS negative. OB hx: SAB x2. Pt reports last EFW in office on 08/19/24 was 7lbs+. Dating based 9wk sono not c/w LMP, PHILIPPE 09/08/24. Pt reports that she saw Dr. Pascual on 08/08/24 and that he changed her PHILIPPE to 08/27/24. O: VSS, except mild hypertension EFM: FHR 130s, moderate variability, +accels, -decels TOCO: irregular UCs SVE by RN: 0/0/-3 Dr. Pascual's report from 08/08/24 is not in the pts chart to review. Dr. Glynn was not notified of PHILIPPE change by Dr. Pascual. Labetalol 100mg PO x1 given Laboratory Tests Test 08/23/24 19:05 08/23/24 20:28 Range/Units Urine Color Yellow Yellow Urine Clarity Turbid H Clear Urine pH 6.0 5.0-9.0 Urine Specific [place] 1.034 1.001-1.035 Urine Protein 2+ H Negative Urine Ketones Trace Negative Urine Blood Negative Negative /uL Urine Nitrite Negative Negative Urine Bilirubin Negative Negative Urine Urobilinogen 3 H Negative mg/dL Urine Leukocyte Esterase 1+ Negative /uL Urine RBC 1 0 - 4 /hpf Urine Microscopic WBC 2 0-5 /HPF Urine Squamous Epithelial Cells Mod <5 /hpf Urine Bacteria Few H None Seen /hpf Urine Hyaline Casts Few 0 - 2 /lpf Urine Mucus Few None Seen Urine Yeast (Budding) Occasional None Seen /hpf Urine Creatinine 315.40 H 30.0-125.0 mg/dL Urine Protein/Creatinine Ratio 0.43 Urine Glucose Normal Normal mg/dL Urine Total Protein 135.9 H 1-14 mg/dL Urine Opiates Screen Neg NEGATIVE Urine Fentanyl Screen Neg NEGATIVE Urine Barbiturates Screen Neg NEGATIVE Urine Phencyclidine Screen Neg NEGATIVE Urine Amphetamines Screen Neg NEGATIVE Urine Benzodiazepines Screen Neg NEGATIVE Urine Cocaine Screen Neg NEGATIVE Urine Cannabinoids Screen Neg NEGATIVE White Blood Count 11.0 H 4.4-10.8 10^3/uL Red Blood Count 3.87 L 4.0-5.20 10^6/uL Hemoglobin 10.4 L 12.2-16.2 g/dL Hematocrit 31.5 L 36.0-46.0 % Mean Corpuscular Volume 81.3 80.0-100.0 fL Mean Corpuscular Hemoglobin 26.7 L 28.0-32.0 pg Mean Corpuscular Hemoglobin Concent 32.9 32.0-36.0 g/dL Red Cell Distribution Width 14.9 H 11.8-14.3 % Platelet Count 267 140-450 10^3/uL Mean Platelet Volume 7.4 6.9-10.8 fL Neutrophils (%) (Auto) 75.4 37.0-80.0 % Lymphocytes (%) (Auto) 14.2 10.0-50.0 % Monocytes (%) (Auto) 7.9 0.0-12.0 % Eosinophils (%) (Auto) 1.9 0.0-7.0 % Basophils (%) (Auto) 0.6 0.0-2.0 % Neutrophils # (Auto) 8.3 1.6-8.6 10 ^3/uL Lymphocytes # (Auto) 1.6 0.4-5.4 10 ^3/uL Monocytes # (Auto) 0.9 0-1.3 10 ^3/uL Eosinophils # (Auto) 0.2 0-0.8 10 ^3/uL Basophils # (Auto) 0.1 0-0.2 10 ^3/uL Nucleated Red Blood Cells 0.1 % Prothrombin Time 9.6 9.3-11.8 sec Prothrombin Time INR 0.90 0.9-1.15 Activated Partial Thromboplast Time 24.8 24.5-34.5 SEC Fibrinogen 532 H 177-375 mg/dL Sodium Level 137 136-145 mmol/L Potassium Level 3.6 3.5-5.1 mmol/L Chloride Level 107 98-107 mmol/L Carbon Dioxide Level 25 20-31 mmol/L Anion Gap 5 5-15 Blood Urea Nitrogen 7 L 9-23 mg/dL Creatinine 0.54 L 0.550-1.02 mg/dL Glomerular Filtration Rate Calc 129 >90 mL/min BUN/Creatinine Ratio 13.0 10.0-20.0 Serum Glucose 75 74-106 mg/dL Uric Acid 5.8 3.1-7.8 mg/dL Calcium Level 9.3 8.7-10.4 mg/dL Total Bilirubin 0.5 0.2-1.0 mg/dL Aspartate Amino Transferase (AST) 15 13-40 U/L Alanine Aminotransferase (ALT) 13 7-40 U/L Alkaline Phosphatase 157 H 46-116 U/L Total Protein 5.9 5.7-8.2 g/dL Albumin 3.4 3.2-4.8 g/dL Rapid Plasma Reagin Pending Treponema pallidum Ab (TP-PA) Pending Hepatitis C Antibody Negative Negative Vital Signs Date Time Temp Pulse Resp B/P (MAP) Pulse Ox O2 Delivery O2 Flow Rate FiO2 08/24/24 00:40 86 145/86 A: 29yo IUP@37.5wks Category I EFM Preeclampsia P: SBAR given to Dr. Glynn, D/C pt home with labetalol rx and have pt see Dr. Glynn in office on 08/24/24 at 0930 to decide POC. Rx sent for labetalol 100mg PO BID per Dr. Glynn's order. kick counts and Preeclampsia warning signs reviewed. Labor precautions given and when to return to the hospital. Other Interventions Other Interventions [place] [id number] Ph: [phone] DIAGNOSTIC IMAGING Diagnostic Imaging Report : [id number] Signed PATIENT: SOY GALVAN ACCT: [id number] UNIT: [id number] : 1995 LOC: [facility] ROOM / BED: [facility] / A AGE / SEX: 29 / F ADM STATUS: ADM IN SERVICE 19 ORDERING PHYSICIAN: JESSENIA JIMENEZ CNM PROCEDURE(s): BPP - BIOPHYSICAL PROFILE REASON: [facility] ORDER NUMBER(s): [id number], ACCESSION NUMBER(s): [id number] OB ULTRASOUND, LIMITED CLINICAL INDICATION: [facility] TECHNIQUE: Multiple grayscale ultrasound and M-mode images were obtained of the pelvis for evaluation of intrauterine . COMPARISON: None FINDINGS: Biophysical profile 02/17 breathin movements: 2 tone: 2 Amniotic Fluid: 2, ANNY 19.0 cm heart rate: 132 position: Vertex Placenta location: Fundal IMPRESSION: Biophysical profile 02/17 ATED BY: RENAE PERALTA MD DICTATED DATE/TIME: 08/23/242337 SIGNED BY: RENAE PERALTA MD SIGNED DATE/TIME: 08/23/242337 CC: Condition on Discharge: Stable Disposition: Home Discharge Instructions: Diet: Regular Activity: No Restrictions, As Tolerated Medications: see med list Follow Up Care: Specialist: f/u with Dr. Glynn in office on 08/24/24 at 0930 Discharge Statement: "Patient was advised to return to the ER or call 911 if any headaches, dizziness, shortness of breath, chest pain, abdominal pain, bleeding, fevers, or worsening of medical condition. Patient was counseled about treatment plan, medications, possible side effects, patientverbalized understanding. All questions were answered to the best of my ability. This discharge took greater then 30 minutes in planning, reviewing documentation, counseling the patient, and discussing with other team members." Visit Coding OBGYN Date of Service: Aug 24, 2024 Billing Provider: JESSENIA JIMENEZ CNM SUPPORT SERVICE TECH Common Visit Codes: [id number] OBS CARE (HIGH) JESSENIA JIMENEZ CNM Aug 24, 2024 01:41
[2024-08-24 13:09] LABS: Protein, Urine 135.9 mg/dL (1-14)
[2024-08-24 13:22] LABS: Urine Protein/Creatinine Ratio 0.43
[2024-08-24 13:25] LABS: Creatinine, Urine 315.4 mg/dL (30.0-125.0)
[2024-08-24 13:28] LABS: Barbiturate Scree,Urine Neg (NEGATIVE); Cannabinoid Screen, Urine Neg (NEGATIVE)
[2024-08-24 13:37] LABS: Amphetamine Screen, Urine Neg (NEGATIVE); Benzodiazephine Screen, Urine Neg (NEGATIVE); Cocaine Screen, Urine Neg (NEGATIVE); Opiate Scree,Urine Neg (NEGATIVE); Phencyclidine Screen, Urine Neg (NEGATIVE)
[2024-08-25 08:06] LABS: RPR Non Reactive (Non Reactive)
== END 2024-08-24 01:37 | disposition home or self-care (01) | DRG 566 ==
LOC: LDRP 19:13
PROVIDERS: ADMIT Obstetrics & Gynecology; ATTEND Obstetrics & Gynecology
DX: O14.93 Unspecified pre-eclampsia, third trimester (principal); O99.323 Drug use complicating pregnancy, third trimester; O99.013 Anemia complicating pregnancy, third trimester; F15.90 Other stimulant use, unspecified, uncomplicated; D64.9 Anemia, unspecified; Z3A.37 37 weeks gestation of pregnancy
CPT/HCPCS: 36415; 59025; 76818; 80053; 80307; 81001; 82570; 84156; 84550; 85025; 85384; 85610; 85730; 86592; 86780; 86803; 86850; 86900; 86901; 94760; 96360; 96361; G0378

== ENCOUNTER 2024-08-26 07:07 | Inpatient (IN) | payer MEDICAID ==
[~2024-08-26] VITALS: Ht 162.6 cm; Wt 120.2 kg
[~2024-08-26 07:07] MED LIST changes: +LABE100T7 PO; -ONDA-155 PO; -PROC10TA6 PO
--- NOTE | 2024-08-26 19:42 | DVH ---
EXAM: US BIOPHYSICAL PROFILE HISTORY: PIH COMPARISON: US BIOPHYSICAL PROFILE on DOS: 08/23/24, US BIOPHYSICAL PROFILE on DOS: 08/21/24, US BIOPHYS ICAL PROFILE on DOS: 08/17/24 TECHNIQUE: Multiple transabdominal real-time grayscale sonographic images through the gravid uterus of the fetus with duplex Doppler color flow and M-mode spectral analysis Findings/Impression: Single live intrauterine in vertex presentation with heart rate of 139 bpm. Biophysical profile was performed with 2 points for respirations, 2 points for movement, 2 points for tone and 2 points for amniotic fluid index. Biophysical profile score of 8/8. Amniotic fluid is within normal limits with ANNY 17.4 cm and MVP 5.6 cm. Normal ANNY (5-25 cm) Normal MVP (2-8 cm)
[2024-08-26 21:16] LABS: Eosinophils # (auto) 0.2 10 ^3/uL (0-0.8); Monocytes # (auto) 0.9 10 ^3/uL (0-1.3); White Blood Cell 10.9 10^3/uL (4.4-10.8)
[2024-08-26 21:19] LABS: Basophils # (auto) 0 10 ^3/uL (0-0.2); Basophils % (auto) 0.4 % (0.0-2.0); Hematocrit 31.6 % (36.0-46.0); Hemoglobin 10.4 g/dL (12.2-16.2); Lymphocytes # (auto) 1.8 10 ^3/uL (0.4-5.4); Lymphocytes % (auto) 16.3 % (10.0-50.0); Mean Corpuscular Hemoglobin 26.8 pg (28.0-32.0); Mean Corpuscular Volume 81.2 fL (80.0-100.0); Monocytes % (auto) 7.9 % (0.0-12.0); Neutrophils % (auto) 73.4 % (37.0-80.0); Nucleated Red Blood Cells % 0.2 %; Platelet Count (auto) 251 10^3/uL (140-450); Red Blood Cells 3.89 10^6/uL (4.0-5.20); Red Cell Distribution Width 15.4 % (11.8-14.3)
[2024-08-26 21:20] LABS: Urine Bacteria MOD /hpf (None Seen); Urine Blood Negative /uL (Negative); Urine Clarity Turbid (Clear); Urine Color Colorless (Yellow); Urine Protein, UAD 1+ (Negative); Urine Specific Gravity 1.009 (1.001-1.035); Urine Squamous Epithelial Cell MOD /hpf (<5); Urine Urobilinogen Normal (Negative); Urine WBC 4 /HPF (0-5); Urine pH 6.5 (5.0-9.0)
[2024-08-26 21:29] LABS: Protein, Urine 45.4 mg/dL (1-14)
[2024-08-26 21:31] LABS: Creatinine, Urine 39.97 mg/dL (30.0-125.0); Urine Protein/Creatinine Ratio 1.14
[2024-08-26 21:34] LABS: Alanine Aminotransferase 13 U/L (7-40); Albumin 3.5 g/dL (3.2-4.8); Anion Gap 6 (5-15); Aspartate Aminotransferase 14 U/L (13-40); BUN/Creatinine Ratio 12.3 (10.0-20.0); Calcium 9.5 mg/dL (8.7-10.4); Carbon Dioxide 25 mmol/L (20-31); Chloride 105 mmol/L (98-107); Glucose 80 mg/dL (74-106); Potassium 3.6 mmol/L (3.5-5.1); Sodium 136 mmol/L (136-145); Uric Acid 5.4 mg/dL (3.1-7.8)
[2024-08-26 21:35] LABS: Bilirubin, Total 0.5 mg/dL (0.2-1.0)
[2024-08-26 21:38] LABS: Alkaline Phosphatase 160 U/L (46-116); Blood Urea Nitrogen 7 mg/dL (9-23)
[2024-08-26] MEDS ORDERED: LIDOCAINE 2%HCL (LOCAL ANESTH.) INJ 20ML MDV IJ PRN (22:15)
[2024-08-26] MEDS ORDERED: NALBUPHINE HCL 10 MG/1ml INJECTION IM PRN (22:15)
[2024-08-26 22:49] LABS: INR 0.91 (0.9-1.15); Partial Thromboplastin Time 24.7 SEC (24.5-34.5); Prothrombin Time 9.7 sec (9.3-11.8)
[2024-08-26] MEDS: WITCH HAZEL-GLYCERIN PAD TOP PRN (22:55)
[2024-08-26] MEDS: DERMOPLAST 60ML BOTTLE TOP PRN (22:55)
[2024-08-26] MEDS: LABETALOL HCL 200 MG TAB PO ONE (22:56)
[2024-08-26] MEDS: PHISODERM TOP SOLN 240ML BTL TOP PRN (22:56)
[2024-08-26 22:59] LABS: Amphetamine Screen, Urine Neg (NEGATIVE); Barbiturate Scree,Urine Neg (NEGATIVE); Benzodiazephine Screen, Urine Neg (NEGATIVE); Cannabinoid Screen, Urine Neg (NEGATIVE); Cocaine Screen, Urine Neg (NEGATIVE); Opiate Scree,Urine Neg (NEGATIVE); Phencyclidine Screen, Urine Neg (NEGATIVE)
[2024-08-27] MEDS: LACTATED RINGER'S 1,000 ML IV SCH (00:32)
[2024-08-27] MEDS: miSOPROStol 50 MCG per PRE-CUT 1/2 TAB PO PRN (02:10)
[2024-08-27] MEDS ORDERED: hydrALAZINE HCL 20 MG/ML VL IV PRN (04:45)
[2024-08-27] MEDS: LABETALOL HCL 200 MG TAB PO SCH ×2 (07:46→21:30)
[2024-08-27] MEDS ORDERED: NALBUPHINE HCL 10 MG/1ml INJECTION IV PRN (08:30)
--- NOTE | 2024-08-27 08:41 | DVHPN2 ---
Chief Complaints Patient reports: No new complaints Nursing reports: No new complaints Objective Vitals Vital Signs Date Time Temp Pulse Resp B/P (MAP) Pulse Ox O2 Delivery O2 Flow Rate FiO2 08/27/24 07:46 107 136/90 Medications Current Medications Medications (Trade) Dose Ordered Sig/Hai Route PRN Reason Start Time Stop Time Status Last Admin Benzocaine (Dermoplast) 1 applic PRN PRN TOP PERINEAL AREA DISCOMFORT 08/26/24 22:15 08/26/24 22:55 Hydralazine HCl (Apresoline Injection) 5 mg Q20MP PRN IV SBP>160 or DBP>95 08/27/24 04:45 Labetalol HCl (Normodyne Tablet) 300 mg Q12HR PO 08/27/24 08:00 08/27/24 07:46 Lactated Ringer's 1,000 ml @ 125 mls/hr Q8H IV 08/26/24 22:15 08/27/24 08:20 Lidocaine HCl (Xylocaine) 20 ml ONCE PRN IJ PERINEAL AREA DISCOMFORT 08/26/24 22:15 Misoprostol (Cytotec) 50 mcg Q4HPRN PRN PO CERVICAL RIPENING 08/26/24 22:15 08/27/24 06:04 Nalbuphine HCl (Nubain) 10 mg Q4HP PRN IM MODERATE PAIN (4-6 PAIN SCALE) 08/26/24 22:15 Nalbuphine HCl (Nubain) 10 mg Q4HP PRN IV MODERATE PAIN (4-6 PAIN SCALE) 08/26/24 22:15 Nalbuphine HCl (Nubain) 10 mg Q4HP PRN IV MODERATE PAIN (4-6 PAIN SCALE) 08/27/24 08:30 Ondansetron HCl (Zofran) 4 mg Q4HPRN PRN IV NAUSEA / VOMITING 08/27/24 08:30 Sodium Lauryl Sulfate (Phisoderm) 240 ml PRN PRN TOP PERINEAL AREA DISCOMFORT 08/26/24 22:15 08/26/24 22:56 Witch Genie (Tucks) 1 pad PRN PRN TOP PERINEAL AREA DISCOMFORT 08/26/24 22:15 08/26/24 22:55 Others ve -2cm/60/-2 Studies Laboratory Tests 08/26/24 21:00 Test 08/26/24 21:00 Range/Units Serum Glucose 80 74-106 mg/dL Ass/Plan Assessment iol for pih Plan martinez inserted cytotec no 2 given Visit Coding OBGYN Date of Service: Aug 27, 2024 Billing Provider: SHOAIB SALDIVAR DO POLLUTION CONTROL TECHNICIAN Common Visit Codes: 58903-AHD/OBS SAME DATE (HIGH) POLLUTION CONTROL TECHNICIAN Consultation Codes: [id number] CONSULT <20MIN POLLUTION CONTROL TECHNICIAN Procedure Codes: 11892-60- NON-STRESS TEST SHOAIB SALDIVAR DO Aug 27, 2024 08:41
--- NOTE | 2024-08-27 08:46 | DVHHP2 ---
OB CC & HPI Date Date of Admission: Aug 26, 2024 Patient Identification: : 3 Para: 0 EDC: Sep 08, 2024 EGA: 38wks Chief Complaints: Reason for admission: induction of labor Indication for induction: medical complication (pih) Admission Nurse Assessment Rev: No History of Present Complaints pt is admitted for pih ,no report of bleeding or rom Past Medical History Cardiac: No pertinent Hx Pulmonary: No pertinent Hx Central Nervous System: No pertinent Hx GI: No pertinent Hx Hemotology/Oncology: No pertinent Hx Hepatobiliary: No pertinent Hx Psychiatric: No pertinent Hx Musculoskeletal: No pertinent Hx Rheumotologic: No pertinent Hx Infectious Disease: No peritnent Hx ENT: No pertinent Hx Renal/: No pertinent Hx Endocrine: No pertinent Hx Dermatology: No pertinent Hx Past Surgical History: No pertinent Hx OB History OB History Care: Good Care Ultrasounds: Normal mid trimester US Obstetrical Complications: Gestational Hypertension Medical Complications: None Allergies: Coded Allergies: Amoxicillin (Verified Allergy, Unknown, 08/23/24) Erythromycin (Verified Allergy, Unknown, 08/23/24) Penicillins (Verified Allergy, Unknown, 08/23/24) Home Meds Active Scripts Labetalol Hcl (Labetalol Hcl) 100 Mg Tab, 1 TAB PO BID, #60 TAB Prov:JESSENIA JIMENEZ CNM 08/24/24 Reported Medications Vit W/ Ferrous Fumara ( One Daily) Daily Tab, 1 TAB PO DAILY, #30 TAB 11 Refills 01/22/24 Discontinued Scripts Prochlorperazine Maleate (Compazine) 10 Mg Tb, 1 TAB PO Q6HR PRN for 15 Days, #60 TAB 3 Refills Prov:PHILL HESTER RESIDENT 01/23/24 Ondansetron HCl (Ondansetron) 4 Mg Tab, 4 MG PO DAILYPRN PRN for 30 Days, #30 TAB 2 Refills Prov:PHILL HESTER RESIDENT 01/23/24 Current Medications Current Medications Medications (Trade) Dose Ordered Sig/Hai Route PRN Reason Start Time Stop Time Status Last Admin Labetalol HCl (Normodyne Tablet) 300 mg Q12HR PO 08/27/24 08:00 08/27/24 07:46 Lactated Ringer's 1,000 ml @ 125 mls/hr Q8H IV 08/26/24 22:15 08/27/24 08:20 Nalbuphine HCl (Nubain) 10 mg Q4HP PRN IM MODERATE PAIN (4-6 PAIN SCALE) 08/26/24 22:15 Nalbuphine HCl (Nubain) 10 mg Q4HP PRN IV MODERATE PAIN (4-6 PAIN SCALE) 08/26/24 22:15 Witch Genie (Tucks) 1 pad PRN PRN TOP PERINEAL AREA DISCOMFORT 08/26/24 22:15 08/26/24 22:55 Sodium Lauryl Sulfate (Phisoderm) 240 ml PRN PRN TOP PERINEAL AREA DISCOMFORT 08/26/24 22:15 08/26/24 22:56 Benzocaine (Dermoplast) 1 applic PRN PRN TOP PERINEAL AREA DISCOMFORT 08/26/24 22:15 08/26/24 22:55 Misoprostol (Cytotec) 50 mcg Q4HPRN PRN PO CERVICAL RIPENING 08/26/24 22:15 08/27/24 06:04 Lidocaine HCl (Xylocaine) 20 ml ONCE PRN IJ PERINEAL AREA DISCOMFORT 08/26/24 22:15 Hydralazine HCl (Apresoline Injection) 5 mg Q20MP PRN IV SBP>160 or DBP>95 08/27/24 04:45 Nalbuphine HCl (Nubain) 10 mg Q4HP PRN IV MODERATE PAIN (4-6 PAIN SCALE) 08/27/24 08:30 Ondansetron HCl (Zofran) 4 mg Q4HPRN PRN IV NAUSEA / VOMITING 08/27/24 08:30 Family & Social History Family/Social History Blood Type: Unknown Rubella: immune RPR/VDRL: Negative GBS Status: Negative HBsAG: Negative Review of Systems Constitutional: No symptom reported Ears, Nose, & Throat: No symptom reported Eyes: No symptom reported Pulmonary/Respiratory: No symptom reported Cardiovascular: No symptom reported Gastrointestinal: No symptom reported Genitourinary: No symptom reported Musculoskeletal: No symptom reported Skin: No symptom reported Psychiatric: No symptom reported Endocrine: No symptom reported Hemotologic/Lymphatic: No symptom reported OB Admission Exam Physical Exam Vitals: Vital Signs Date Time Temp Pulse Resp B/P (MAP) Pulse Ox O2 Delivery O2 Flow Rate FiO2 08/27/24 07:46 107 136/90 HEENT: TMs Normal, Fontanelles Normal, Nasal Mucosa Normal, Eyes non-injected, Oropharynx Normal, PERRLA, Moist Membranes, EOMI Heart: Rhythm Normal Lungs: Clear Abdomen: Non tender Extremities: Normal Reflexes: Normal Cervical Dilatation: 2cm Effacement: 50% Station: -2 Membranes: Intact Heart Rate: 130's Accelerations: Accelerations Present Decelerations: No Decelerations Short Term Variability: Present Pasteuriser Operator Variability: Average (6-25) Contractions on Admission: 6-10 Minutes Apart Intensity: Mild OB Plan Plan Admitting Diagnosis: iup at 38 wks induction of labor for PIH morbid oesity Plan: Expectant Management, Induction Induction Methd: Misoprostol protocol Other Plan: informed consent obtained Visit Coding OBGYN Date of Service: Aug 27, 2024 Billing Provider: SHOAIB SALDIVAR DO CERTIFIED JUVENILE PROBATION OFFICER Common Visit Codes: 79689-UDS/OBS SAME DATE (HIGH) CERTIFIED JUVENILE PROBATION OFFICER Procedure Codes: 73485-54- NON-STRESS TEST SHOAIB SALDIVAR DO Aug 27, 2024 08:46
[2024-08-27] MEDS: ONDANSETRON HCL 4 MG/2 ML VIAL IV PRN (08:48)
[2024-08-27] MEDS: NALBUPHINE HCL 10 MG/1ml INJECTION IV PRN (08:50)
[2024-08-27] MEDS ORDERED: MAGNESIUM SULFATE 100 ML IV ONE (10:30)
[2024-08-27] MEDS ORDERED: MAGNESIUM SULFATE 40MG/ML 1,000 ML IV SCH (10:30)
[2024-08-27] MEDS ORDERED: LACTATED RINGER'S 1,000 ML IV SCH (10:30)
[2024-08-27] MEDS ORDERED: TERBUTALINE SULFATE 1 MG/ML 1ML VIAL SC PRN (10:30)
[2024-08-27] MEDS ORDERED: LIDOCAINE HCL 2 %PF INJ 10ML AMP IJ ONE (11:45)
[2024-08-27] MEDS: LIDOCAINE 2% (LOCAL ANESTH.) PF 5ml SDV ONE (12:09)
[2024-08-27] MEDS: ROPIVACAINE HCL 200 ML ONE (12:48)
[2024-08-27] MEDS: LACT. RINGERS/OXYTOCIN 20UNITS 1,000 ML IV SCH (14:46)
[2024-08-27] MEDS: LIDOCAINE 2% (LOCAL ANESTH.) PF 5ml SDV IJ ONE (17:51)
--- NOTE | 2024-08-27 20:29 | DVHPN2 ---
OB Labor Progress Note Date and Time Seen Date Seen: Aug 27, 2024 Time Seen: 19:11 Subjective Patient reports: No new complaints Monitoring Method Monitoring Method: External Heart Rate Heart Rate Baseline: 140 Heart Rate Variability: Minimal Presence of FHR Accelerations: No Presence of FHR Decelerations: No Are all 5 Components of the FH: Yes Contractions Contractions Frequency: Other (1-2min) Duration of Contraction: 60 Contractions Intensity: Moderate Contractions Resting Tone: Relaxed Membranes Membranes: Intact Vaginal Exam Vag Exam Deferred: No Vaginal Exam Dilation: 5 Vaginal Exam Effacement: 70 Vaginal Exam Station: -2 Vaginal Exam Presentation: VTX Vaginal Exam Show: Small Medications Medications - Pitocin: Yes Medication - Epidural: Yes Lab Results Lab Results Vital Signs Date Time Temp Pulse Resp B/P (MAP) Pulse Ox O2 Delivery O2 Flow Rate FiO2 08/28/24 17:04 18 92 Room Air 08/28/24 17:03 105 113/52 (72) 08/28/24 16:30 2.0 08/28/24 15:29 98.7 98.7 08/27/24 23:42 97 I & O 08/28/24 07:00 Intake Total 750 ml Output Total 725 ml Balance 25 ml Other 750 ml Output Urine Total 725 ml Current Medications Medications (Trade) Dose Ordered Sig/Hai Start Time Stop Time Status Last Admin Dose Admin Labetalol HCl (Normodyne Tablet) 200 mg ONCE ONCE 08/26/24 22:15 08/26/24 22:17 DC 08/26/24 22:56 200 MG Labetalol HCl (Normodyne Tablet) 300 mg Q12HR 08/27/24 08:00 08/27/24 17:31 DC 08/27/24 07:46 300 MG Lactated Ringer's 1,000 ml @ 125 mls/hr Q8H 08/26/24 22:15 08/28/24 14:17 125 MLS/HR Nalbuphine HCl (Nubain) 10 mg Q4HP PRN 08/26/24 22:15 08/28/24 02:58 DC Nalbuphine HCl (Nubain) 10 mg Q4HP PRN 08/26/24 22:15 08/28/24 02:58 DC 08/27/24 08:50 10 MG Witch Genie (Tucks) 1 pad PRN PRN 08/26/24 22:15 08/26/24 22:55 1 PAD Sodium Lauryl Sulfate (Phisoderm) 240 ml PRN PRN 08/26/24 22:15 08/26/24 22:56 240 ML Benzocaine (Dermoplast) 1 applic PRN PRN 08/26/24 22:15 08/26/24 22:55 1 APPLIC Misoprostol (Cytotec) 50 mcg Q4HPRN PRN 08/26/24 22:15 08/28/24 02:58 DC 08/27/24 06:04 50 MCG Lidocaine HCl (Xylocaine) 20 ml ONCE PRN 08/26/24 22:15 08/28/24 02:58 DC Hydralazine HCl (Apresoline Injection) 5 mg Q20MP PRN 08/27/24 04:45 Nalbuphine HCl (Nubain) 10 mg Q4HP PRN 08/27/24 08:30 08/27/24 08:40 DC Ondansetron HCl (Zofran) 4 mg Q4HPRN PRN 08/27/24 08:30 08/27/24 23:11 DC 08/27/24 08:48 4 MG Oxytocin 1,000 ml @ 6 ml/hr Q24H 08/27/24 10:30 08/28/24 02:58 DC 08/27/24 14:46 3 ML/HR Terbutaline Sulfate (Brethine Inj) 0.25 mg ONCE PRN 08/27/24 10:30 08/28/24 02:58 DC Oxytocin 500 ml @ 999 mls/hr Q31M ONCE 08/27/24 10:30 08/27/24 11:00 DC Oxytocin 500 ml @ 125 mls/hr Q4H ONCE 08/27/24 11:00 08/27/24 14:59 DC Lactated Ringer's 1,000 ml @ 75 mls/hr [id number] 08/27/24 10:30 08/28/24 02:58 DC Magnesium Sulfate 1,000 ml @ 50 mls/hr Q20H 08/27/24 10:30 08/28/24 02:58 DC Magnesium Sulfate 100 ml @ 300 mls/hr ONCE ONCE 08/27/24 10:30 08/28/24 05:21 DC Ephedrine Sulfate (ePHEDrine SULFATE) 10 mg PRN ONCE 08/27/24 11:45 08/27/24 12:03 DC Lidocaine HCl (Xylocaine-Pf 2% Injection) 1 ml ONCE ONCE 08/27/24 11:45 08/27/24 17:07 DC Lidocaine HCl 5 ml ONCE ONCE 08/27/24 17:15 08/27/24 17:28 DC 08/27/24 17:51 5 ML Labetalol HCl (Normodyne Tablet) 300 mg Q12H 08/27/24 20:00 08/28/24 03:22 DC 08/27/24 21:30 300 MG Clindamycin Phosphate 50 ml @ 50 mls/hr ONCE ONCE 08/27/24 21:00 08/27/24 21:59 DC 08/27/24 21:23 50 MLS/HR Sodium Chloride 300 ml @ 0 mls/hr Q0M ONCE 08/27/24 21:30 08/27/24 21:31 DC 08/28/24 02:43 300 MLS/HR Sodium Chloride 1,000 ml @ 100 mls/hr Q10H 08/27/24 21:30 08/28/24 02:58 DC 08/28/24 02:45 100 MLS/HR Oxytocin 1,000 ml @ 125 mls/hr Q8H ONCE 08/27/24 22:00 08/28/24 02:58 DC Ondansetron HCl (Zofran) 4 mg Q4HP PRN 08/27/24 22:00 [place] Gum (Chewing Gum) 1 gum ONCE ONCE 08/27/24 22:00 08/27/24 22:01 DC Ondansetron HCl (Zofran) 4 mg Q4HP PRN 08/27/24 23:15 08/27/24 23:12 DC Naloxone HCl (Narcan) 0.2 mg Q5M PRN 08/27/24 23:15 08/27/24 23:21 DC Hydromorphone HCl (Dilaudid Injection) 0.5 mg Q15M PRN 08/27/24 23:15 08/27/24 23:46 DC 08/27/24 23:22 0.5 MG Ketorolac Tromethamine (Toradol Injection) 30 mg Q6HP PRN 08/27/24 23:15 08/28/24 02:58 DC Acetaminophen (Ofirmev) 1,000 mg ONCE ONCE 08/27/24 23:15 08/27/24 23:16 DC 08/27/24 23:19 1,000 MG Clindamycin Phosphate 50 ml @ 50 mls/hr Q8HR 08/28/24 05:30 08/28/24 14:13 50 MLS/HR Acetaminophen (Ofirmev) 1,000 mg ONCE PRN 08/28/24 07:00 Labetalol HCl (Normodyne Tablet) 300 mg Q12H 08/28/24 09:30 08/28/24 09:05 300 MG Hydromorphone HCl (Dilaudid Injection) 1 mg Q3HPRN PRN 08/28/24 05:00 Lactated Ringer's 1,000 ml @ 75 mls/hr [id number] 08/28/24 05:30 Magnesium Sulfate 1,000 ml @ 50 mls/hr Q20H 08/28/24 07:30 08/28/24 07:12 50 MLS/HR Magnesium Sulfate 100 ml @ 300 mls/hr ONCE ONCE 08/28/24 07:00 08/28/24 07:19 DC 08/28/24 07:03 300 MLS/HR Lorazepam (Ativan Inj) 4 mg ONCE ONCE 08/28/24 07:00 08/28/24 07:01 DC Laboratory Tests Test 08/28/24 16:57 08/28/24 06:31 08/26/24 21:00 08/26/24 19:05 Range/Units Magnesium Lvl (Mg Sulfate Therapy) 4.22 4.0-7.1 mg/dL White Blood Count 22.9 H 4.4-10.8 10^3/uL Red Blood Count 3.36 L 4.0-5.20 10^6/uL Hemoglobin 9.0 L 12.2-16.2 g/dL Hematocrit 27.4 L 36.0-46.0 % Mean Corpuscular Volume 81.7 80.0-100.0 fL Mean Corpuscular Hemoglobin 26.8 L 28.0-32.0 pg Mean Corpuscular Hemoglobin Concent 32.8 32.0-36.0 g/dL Red Cell Distribution Width 15.3 H 11.8-14.3 % Platelet Count 246 140-450 10^3/uL Mean Platelet Volume 7.7 6.9-10.8 fL Neutrophils (%) (Auto) 92.5 H 37.0-80.0 % Lymphocytes (%) (Auto) 3.5 L 10.0-50.0 % Monocytes (%) (Auto) 3.5 0.0-12.0 % Eosinophils (%) (Auto) 0.0 0.0-7.0 % Basophils (%) (Auto) 0.5 0.0-2.0 % Neutrophils # (Auto) 21.2 H 1.6-8.6 10 ^3/uL Lymphocytes # (Auto) 0.8 0.4-5.4 10 ^3/uL Monocytes # (Auto) 0.8 0-1.3 10 ^3/uL Eosinophils # (Auto) 0 0-0.8 10 ^3/uL Basophils # (Auto) 0.1 0-0.2 10 ^3/uL Nucleated Red Blood Cells 0.0 % Magnesium Level 1.5 L 1.6-2.6 mg/dL Prothrombin Time 9.7 9.3-11.8 sec Prothrombin Time INR 0.91 0.9-1.15 Activated Partial Thromboplast Time 24.7 24.5-34.5 SEC Sodium Level 136 136-145 mmol/L Potassium Level 3.6 3.5-5.1 mmol/L Chloride Level 105 98-107 mmol/L Carbon Dioxide Level 25 20-31 mmol/L Anion Gap 6 5-15 Blood Urea Nitrogen 7 L 9-23 mg/dL Creatinine 0.57 0.550-1.02 mg/dL Glomerular Filtration Rate Calc 127 >90 mL/min BUN/Creatinine Ratio 12.3 10.0-20.0 Serum Glucose 80 74-106 mg/dL Uric Acid 5.4 3.1-7.8 mg/dL Calcium Level 9.5 8.7-10.4 mg/dL Total Bilirubin 0.5 0.2-1.0 mg/dL Aspartate Amino Transferase (AST) 14 13-40 U/L Alanine Aminotransferase (ALT) 13 7-40 U/L Alkaline Phosphatase 160 H 46-116 U/L Total Protein 6.0 5.7-8.2 g/dL Albumin 3.5 3.2-4.8 g/dL Rapid Plasma Reagin Pending Treponema pallidum Ab (TP-PA) Pending Hepatitis C Antibody Negative Negative Urine Color Colorless Yellow Urine Clarity Turbid H Clear Urine pH 6.5 5.0-9.0 Urine Specific [place] 1.009 1.001-1.035 Urine Protein 1+ H Negative Urine Ketones Negative Negative Urine Blood Negative Negative /uL Urine Nitrite Negative Negative Urine Bilirubin Negative Negative Urine Urobilinogen Normal Negative mg/dL Urine Leukocyte Esterase Trace Negative /uL Urine RBC 2 0 - 4 /hpf Urine Microscopic WBC 4 0-5 /HPF Urine Squamous Epithelial Cells Mod <5 /hpf Urine Bacteria Mod H None Seen /hpf Urine Creatinine 39.97 30.0-125.0 mg/dL Urine Protein/Creatinine Ratio 1.14 Urine Glucose Normal Normal mg/dL Urine Total Protein 45.4 H 1-14 mg/dL Urine Opiates Screen Neg NEGATIVE Urine Fentanyl Screen Neg NEGATIVE Urine Barbiturates Screen Neg NEGATIVE Urine Phencyclidine Screen Neg NEGATIVE Urine Amphetamines Screen Neg NEGATIVE Urine Benzodiazepines Screen Neg NEGATIVE Urine Cocaine Screen Neg NEGATIVE Urine Cannabinoids Screen Neg NEGATIVE Assessment Assessment IUP at 38w 2d Pre eclampsia Obesity IOL for above. Category II FHR Tracing Plan Plan Amniotomy - done - clear copious fluid IUPC placed FSE applied Continue EFM per policy Will consider Amnioinfusion if variables Frequent position change to facilitate labor progress Intrauterine resuscitation PRN Re-assess labor progress PRN Co-managing with Dr Glynn Plan discussed with: Patient, Other (Patient's sister) Visit Coding OBGYN Date of Service: Aug 27, 2024 Billing Provider: BLESSING ARMSTRONG CNM PRINCIPAL CLERK TYPIST Common Visit Codes: [id number] INP/OBS CARE(HIGH) BLESSING ARMSTRONG CNM Aug 27, 2024 20:29
[2024-08-27] MEDS: CLINDAMYCIN 900MG IV 50 ML IV ONE (21:23)
[2024-08-27] MEDS ORDERED: CIPR-173 PO (21:50)
[2024-08-27] MEDS ORDERED: DOCU-94 PO (21:50)
[2024-08-27] MEDS ORDERED: IBUP-1456 PO (21:50)
[2024-08-27] MEDS ORDERED: HYDR-4072 PO (21:51)
[2024-08-27] MEDS ORDERED: LIDOCAINE W/ EPINEPHRINE 1% 20ML VIAL ONE (21:55)
[2024-08-27] MEDS ORDERED: DexAMETHasone SOD PHOS 10MG/1ML VIAL INJ ONE (21:55)
[2024-08-27] MEDS ORDERED: ONDANSETRON HCL 4 MG/2 ML VIAL ONE (21:55)
--- NOTE | 2024-08-27 21:59 | DVHHP ---
CHIEF COMPLAINT: Failure to progress, nonreassuring heart tracing. HISTORY OF PRESENT ILLNESS: The patient is a 29-year-old 3, para 0 with EDC 09/08, estimated gestational age of 38 weeks, admitted for induction of labor secondary to preeclampsia. The patient received 2 Cytotec, had Aguayo balloon followed by Pitocin, but started having deep variables. She was remote from delivery despite IUPC and amnioinfusion. The patient continued with nonreassuring heart tracing. Subsequently, the patient was taken for primary . PAST MEDICAL HISTORY: None. PAST SURGICAL HISTORY: Two D and Cs. SOCIAL HISTORY: Positive for marijuana early in . FAMILY HISTORY: None. OBSTETRIC AND GYNECOLOGIC HISTORY: Two spontaneous . REVIEW OF SYSTEMS: Consistent with HPI. PHYSICAL EXAMINATION: VITAL SIGNS: Stable, afebrile. HEENT: Within normal limits. CARDIOVASCULAR: Regular rate and rhythm. LUNGS: Clear to auscultation. BREASTS: Symmetrical. No masses. ABDOMEN: Gravid. Positive heart. PELVIC: 7 cm, -2, 90 percent. EXTREMITIES: No clubbing, cyanosis or edema. IMPRESSION: * Intrauterine at 38+ weeks, induction of labor for preeclampsia. * Morbid obesity. * Nonreassuring heart tracing. PLAN: Primary low transverse section. Informed consent obtained. Risks, complication of surgery including infection, bleeding, hematoma formation, injury to bowel, bladder, surrounding organs, possibility of DVT, pulmonary embolism, risk of anesthesia discussed with the patient. Options reviewed. All questions answered. The patient fully understands. She wishes to proceed with planned procedure. DO OBINNA Singh TID: [id number] RECEIPT: [id number]
[2024-08-27] MEDS ORDERED: ONDANSETRON HCL 4 MG/2 ML VIAL IV PRN ×2 (22:00→23:15)
[2024-08-27] MEDS ORDERED: LACT. RINGERS/OXYTOCIN 20UNITS 1,000 ML IV ONE (22:00)
[2024-08-27] MEDS ORDERED: PROPOFOL 10 MG/ML 20 ML IV ONE (22:03)
[2024-08-27] MEDS: LACT. RINGERS/OXYTOCIN 20UNITS 500 ML IV ONE ×2 (22:05→23:00)
[2024-08-27] MEDS ORDERED: SUGAMMADEX 200mg/2ml Vial (100MG/ML) IV ONE (22:16)
[2024-08-27] MEDS ORDERED: PHENYLEPHRINE HCL 10 MG/ML VL ONE (22:17)
[2024-08-27] MEDS ORDERED: MORPHINE SULF PF 5 MG/10 ML VIAL ONE (22:24)
[2024-08-27] MEDS: CARBOPROST TROMETHAMINE 250 MCG/1ML VIAL IM ONE (22:25)
--- NOTE | 2024-08-27 22:32 | DVHPN2 ---
OB Labor Progress Note Date and Time Seen Date Seen: Aug 27, 2024 Time Seen: 19:50 Subjective Patient reports: No new complaints Monitoring Method Monitoring Method: Internal Heart Rate Heart Rate Baseline: 150 Heart Rate Variability: Minimal, Moderate Presence of FHR Accelerations: No Presence of FHR Decelerations: Yes Heart Rate Type of Decel: Early Deceleraions, Variable Decelerations Are all 5 Components of the FH: Yes Contractions Duration of Contraction: 70 Contractions Resting Tone: MVU (290) Membranes Membranes: Ruptured Amniotic Fluid Color: Clear Vaginal Exam Vag Exam Deferred: Yes Medications Medications - Pitocin: Yes Medication - Epidural: Yes Lab Results Lab Results Vital Signs Date Time Temp Pulse Resp B/P (MAP) Pulse Ox O2 Delivery O2 Flow Rate FiO2 08/28/24 17:04 18 92 Room Air 08/28/24 17:03 105 113/52 (72) 08/28/24 16:30 2.0 08/28/24 15:29 98.7 98.7 08/27/24 23:42 97 I & O 08/28/24 07:00 Intake Total 750 ml Output Total 725 ml Balance 25 ml Other 750 ml Output Urine Total 725 ml Current Medications Medications (Trade) Dose Ordered Sig/Hai Start Time Stop Time Status Last Admin Dose Admin Labetalol HCl (Normodyne Tablet) 200 mg ONCE ONCE 08/26/24 22:15 08/26/24 22:17 DC 08/26/24 22:56 200 MG Labetalol HCl (Normodyne Tablet) 300 mg Q12HR 08/27/24 08:00 08/27/24 17:31 DC 08/27/24 07:46 300 MG Lactated Ringer's 1,000 ml @ 125 mls/hr Q8H 08/26/24 22:15 08/28/24 14:17 125 MLS/HR Nalbuphine HCl (Nubain) 10 mg Q4HP PRN 08/26/24 22:15 08/28/24 02:58 DC Nalbuphine HCl (Nubain) 10 mg Q4HP PRN 08/26/24 22:15 08/28/24 02:58 DC 08/27/24 08:50 10 MG Witch Genie (Tucks) 1 pad PRN PRN 08/26/24 22:15 08/26/24 22:55 1 PAD Sodium Lauryl Sulfate (Phisoderm) 240 ml PRN PRN 08/26/24 22:15 08/26/24 22:56 240 ML Benzocaine (Dermoplast) 1 applic PRN PRN 08/26/24 22:15 08/26/24 22:55 1 APPLIC Misoprostol (Cytotec) 50 mcg Q4HPRN PRN 08/26/24 22:15 08/28/24 02:58 DC 08/27/24 06:04 50 MCG Lidocaine HCl (Xylocaine) 20 ml ONCE PRN 08/26/24 22:15 08/28/24 02:58 DC Hydralazine HCl (Apresoline Injection) 5 mg Q20MP PRN 08/27/24 04:45 Nalbuphine HCl (Nubain) 10 mg Q4HP PRN 08/27/24 08:30 08/27/24 08:40 DC Ondansetron HCl (Zofran) 4 mg Q4HPRN PRN 08/27/24 08:30 08/27/24 23:11 DC 08/27/24 08:48 4 MG Oxytocin 1,000 ml @ 6 ml/hr Q24H 08/27/24 10:30 08/28/24 02:58 DC 08/27/24 14:46 3 ML/HR Terbutaline Sulfate (Brethine Inj) 0.25 mg ONCE PRN 08/27/24 10:30 08/28/24 02:58 DC Oxytocin 500 ml @ 999 mls/hr Q31M ONCE 08/27/24 10:30 08/27/24 11:00 DC Oxytocin 500 ml @ 125 mls/hr Q4H ONCE 08/27/24 11:00 08/27/24 14:59 DC Lactated Ringer's 1,000 ml @ 75 mls/hr [id number] 08/27/24 10:30 08/28/24 02:58 DC Magnesium Sulfate 1,000 ml @ 50 mls/hr Q20H 08/27/24 10:30 08/28/24 02:58 DC Magnesium Sulfate 100 ml @ 300 mls/hr ONCE ONCE 08/27/24 10:30 08/28/24 05:21 DC Ephedrine Sulfate (ePHEDrine SULFATE) 10 mg PRN ONCE 08/27/24 11:45 08/27/24 12:03 DC Lidocaine HCl (Xylocaine-Pf 2% Injection) 1 ml ONCE ONCE 08/27/24 11:45 08/27/24 17:07 DC Lidocaine HCl 5 ml ONCE ONCE 08/27/24 17:15 08/27/24 17:28 DC 08/27/24 17:51 5 ML Labetalol HCl (Normodyne Tablet) 300 mg Q12H 08/27/24 20:00 08/28/24 03:22 DC 08/27/24 21:30 300 MG Clindamycin Phosphate 50 ml @ 50 mls/hr ONCE ONCE 08/27/24 21:00 08/27/24 21:59 DC 08/27/24 21:23 50 MLS/HR Sodium Chloride 300 ml @ 0 mls/hr Q0M ONCE 08/27/24 21:30 08/27/24 21:31 DC 08/28/24 02:43 300 MLS/HR Sodium Chloride 1,000 ml @ 100 mls/hr Q10H 08/27/24 21:30 08/28/24 02:58 DC 08/28/24 02:45 100 MLS/HR Oxytocin 1,000 ml @ 125 mls/hr Q8H ONCE 08/27/24 22:00 08/28/24 02:58 DC Ondansetron HCl (Zofran) 4 mg Q4HP PRN 08/27/24 22:00 [place] Gum (Chewing Gum) 1 gum ONCE ONCE 08/27/24 22:00 08/27/24 22:01 DC Ondansetron HCl (Zofran) 4 mg Q4HP PRN 08/27/24 23:15 08/27/24 23:12 DC Naloxone HCl (Narcan) 0.2 mg Q5M PRN 08/27/24 23:15 08/27/24 23:21 DC Hydromorphone HCl (Dilaudid Injection) 0.5 mg Q15M PRN 08/27/24 23:15 08/27/24 23:46 DC 08/27/24 23:22 0.5 MG Ketorolac Tromethamine (Toradol Injection) 30 mg Q6HP PRN 08/27/24 23:15 08/28/24 02:58 DC Acetaminophen (Ofirmev) 1,000 mg ONCE ONCE 08/27/24 23:15 08/27/24 23:16 DC 08/27/24 23:19 1,000 MG Clindamycin Phosphate 50 ml @ 50 mls/hr Q8HR 08/28/24 05:30 08/28/24 14:13 50 MLS/HR Acetaminophen (Ofirmev) 1,000 mg ONCE PRN 08/28/24 07:00 Labetalol HCl (Normodyne Tablet) 300 mg Q12H 08/28/24 09:30 08/28/24 09:05 300 MG Hydromorphone HCl (Dilaudid Injection) 1 mg Q3HPRN PRN 08/28/24 05:00 Lactated Ringer's 1,000 ml @ 75 mls/hr [id number] 08/28/24 05:30 Magnesium Sulfate 1,000 ml @ 50 mls/hr Q20H 08/28/24 07:30 08/28/24 07:12 50 MLS/HR Magnesium Sulfate 100 ml @ 300 mls/hr ONCE ONCE 08/28/24 07:00 08/28/24 07:19 DC 08/28/24 07:03 300 MLS/HR Lorazepam (Ativan Inj) 4 mg ONCE ONCE 08/28/24 07:00 08/28/24 07:01 DC Laboratory Tests Test 08/28/24 16:57 08/28/24 06:31 08/26/24 21:00 08/26/24 19:05 Range/Units Magnesium Lvl (Mg Sulfate Therapy) 4.22 4.0-7.1 mg/dL White Blood Count 22.9 H 4.4-10.8 10^3/uL Red Blood Count 3.36 L 4.0-5.20 10^6/uL Hemoglobin 9.0 L 12.2-16.2 g/dL Hematocrit 27.4 L 36.0-46.0 % Mean Corpuscular Volume 81.7 80.0-100.0 fL Mean Corpuscular Hemoglobin 26.8 L 28.0-32.0 pg Mean Corpuscular Hemoglobin Concent 32.8 32.0-36.0 g/dL Red Cell Distribution Width 15.3 H 11.8-14.3 % Platelet Count 246 140-450 10^3/uL Mean Platelet Volume 7.7 6.9-10.8 fL Neutrophils (%) (Auto) 92.5 H 37.0-80.0 % Lymphocytes (%) (Auto) 3.5 L 10.0-50.0 % Monocytes (%) (Auto) 3.5 0.0-12.0 % Eosinophils (%) (Auto) 0.0 0.0-7.0 % Basophils (%) (Auto) 0.5 0.0-2.0 % Neutrophils # (Auto) 21.2 H 1.6-8.6 10 ^3/uL Lymphocytes # (Auto) 0.8 0.4-5.4 10 ^3/uL Monocytes # (Auto) 0.8 0-1.3 10 ^3/uL Eosinophils # (Auto) 0 0-0.8 10 ^3/uL Basophils # (Auto) 0.1 0-0.2 10 ^3/uL Nucleated Red Blood Cells 0.0 % Magnesium Level 1.5 L 1.6-2.6 mg/dL Prothrombin Time 9.7 9.3-11.8 sec Prothrombin Time INR 0.91 0.9-1.15 Activated Partial Thromboplast Time 24.7 24.5-34.5 SEC Sodium Level 136 136-145 mmol/L Potassium Level 3.6 3.5-5.1 mmol/L Chloride Level 105 98-107 mmol/L Carbon Dioxide Level 25 20-31 mmol/L Anion Gap 6 5-15 Blood Urea Nitrogen 7 L 9-23 mg/dL Creatinine 0.57 0.550-1.02 mg/dL Glomerular Filtration Rate Calc 127 >90 mL/min BUN/Creatinine Ratio 12.3 10.0-20.0 Serum Glucose 80 74-106 mg/dL Uric Acid 5.4 3.1-7.8 mg/dL Calcium Level 9.5 8.7-10.4 mg/dL Total Bilirubin 0.5 0.2-1.0 mg/dL Aspartate Amino Transferase (AST) 14 13-40 U/L Alanine Aminotransferase (ALT) 13 7-40 U/L Alkaline Phosphatase 160 H 46-116 U/L Total Protein 6.0 5.7-8.2 g/dL Albumin 3.5 3.2-4.8 g/dL Rapid Plasma Reagin Pending Treponema pallidum Ab (TP-PA) Pending Hepatitis C Antibody Negative Negative Urine Color Colorless Yellow Urine Clarity Turbid H Clear Urine pH 6.5 5.0-9.0 Urine Specific [place] 1.009 1.001-1.035 Urine Protein 1+ H Negative Urine Ketones Negative Negative Urine Blood Negative Negative /uL Urine Nitrite Negative Negative Urine Bilirubin Negative Negative Urine Urobilinogen Normal Negative mg/dL Urine Leukocyte Esterase Trace Negative /uL Urine RBC 2 0 - 4 /hpf Urine Microscopic WBC 4 0-5 /HPF Urine Squamous Epithelial Cells Mod <5 /hpf Urine Bacteria Mod H None Seen /hpf Urine Creatinine 39.97 30.0-125.0 mg/dL Urine Protein/Creatinine Ratio 1.14 Urine Glucose Normal Normal mg/dL Urine Total Protein 45.4 H 1-14 mg/dL Urine Opiates Screen Neg NEGATIVE Urine Fentanyl Screen Neg NEGATIVE Urine Barbiturates Screen Neg NEGATIVE Urine Phencyclidine Screen Neg NEGATIVE Urine Amphetamines Screen Neg NEGATIVE Urine Benzodiazepines Screen Neg NEGATIVE Urine Cocaine Screen Neg NEGATIVE Urine Cannabinoids Screen Neg NEGATIVE Consulting with Regarding Informed re: persistent category II, despite intervention with amnioinfusion. Variability initially improved briefly and is now minimal Assessment Assessment IUP at 38w 2d Pre Eclampsia Obesity Category II FHR Tracing Plan Plan Continue Amnioinfusion Continue EFM Observe response to amnioinfusion Co- managing with Connelly Plan discussed with: Patient, Other (Pt's sister) Visit Coding OBGYN Date of Service: Aug 27, 2024 Billing Provider: BLESSING ARMSTRONG CNM MEDICAL MASSAGE THERAPIST Common Visit Codes: [id number] INP/OBS CARE(HIGH) BLESSING ARMSTRONG CNM Aug 27, 2024 22:32
--- NOTE | 2024-08-27 22:42 | DVHOP2 ---
Operative Report DATE OF OPERATION: 08/27/24 PREOPERATIVE DIAGNOSES: iup at 38wks induction of labor for pih,morbid obesity,non reassuring fht fetus at risk POSTOPERATIVE DIAGNOSES: same,op SURGEON: Savita Glynn D.O./shayna ANESTHESIOLOGIST: юлия TYPE OF ANESTHESIA : spinal converted to general CONSENT: The patient was informed of the risks and benefits of the procedure. The patient was informed of the risks and benefits of the procedure. These include but are not limited to , complications of anesthesia, postoperative infection, incomplete relief of symptoms, recurrence of symptoms, damage to blood vessels, nerves and tendons, deep venous thrombosis, pulmonary embolism and possible need for repeat surgery in the future. FINDINGS: Baby [b] with Apgars of [8] and [9]. Grossly normal appearing tubes and ovaries.op PROCEDURES: Primary low transverse section. PROCEDURE IN DETAIL: The patient was taken to the operating room. She already had an epidural in place. She was then placed in supine position with a leftward tilt. A Pfannenstiel skin incision was made 2 cm above the symphysis pubis. This incision was carried to the underlying layer of fascia. The fascia was nicked in the midline. The incision was extended laterally. The superior aspect of the fascial incision was grasped and elevated. The same procedure was done to the inferior aspect of the fascial incision. The rectus muscles were then in the midline. Peritoneum was identified and entered. Peritoneal incision was extended superiorly and inferiorly with good visualization of the bladder. Bladder blade was inserted. Vesicouterine peritoneum was identified and entered. Lower uterine segment was incised in a transverse fashion. The infant was delivered from vertex presentation. Infant was baby [b] with Apgars [8] and [9]. Placenta was then removed manually. Uterus was exteriorized and cleared of all clots and debris. The incision was repaired using 0 Vicryl in a double-layered fashion. No bleeding was noted. Uterus was then returned to the abdomen. The gutters were cleared off all clots and debris. Peritoneum was closed using 0 Vicryl, fascia was closed using 0 Maxon, and skin was closed using michelle. The patient tolerated the procedure well. She was taken to the recovery room in stable condition. ESTIMATED BLOOD LOSS: Estimated blood loss was noted to be 1000 mL. Visit Coding OBGYN Date of Service: Aug 27, 2024 Billing Provider: SAVITA GLYNN DO PIPE BUFFER Common Visit Codes: [id number] INP/OBS CARE(HIGH) PIPE BUFFER Procedure Codes: [id number] DELIVERY ONLY SAVITA GLYNN DO Aug 27, 2024 22:42
--- NOTE | 2024-08-27 22:44 | POSTOP ---
Post-Operative Note Post-Operative Note Preop Diagnosis iup at 38wks iol for pih,morbid obesity ,nonreassuring fht Postop Diagnosis: same,op Operation performed pltcs Specimen baby boy,apgars 8-9,cord ph 7.34 Anesthesia: General Anesthesiologist: redman Blood Loss(fluid mgmt) 1000ml Surgeon Shoaib Glynn Patient Information Coordinator shayna Implant na Complications & Mgmt none Date 08/27/24 Time 22:42 Visit Coding OBGYN Date of Service: Aug 27, 2024 Billing Provider: SHOAIB GLYNN DO AUTO REBUILDER Common Visit Codes: [id number] INP/OBS CARE(HIGH) AUTO REBUILDER Procedure Codes: [id number] DELIVERY ONLY SHOAIB GLYNN DO Aug 27, 2024 22:43
[2024-08-27 22:51] VITALS: O2SAT 99
[2024-08-27] MEDS: ePHEDrine SULFATE 50 MG/ML AMP IV ONE (23:00)
[2024-08-27] MEDS ORDERED: KETOROLAC TROMETH 30 MG/ML 1ML VIAL IV PRN (23:15)
[2024-08-27] MEDS ORDERED: NALOXONE HCL 0.4 MG/ML VIAL IV PRN (23:15)
[2024-08-27] MEDS: ACETAMINOPHEN IV 100 ML IV ONE (23:19)
[2024-08-27] MEDS: ACETAMINOPHEN IV 1000 MG/100ML (10MG/ML) IV ONE (23:19)
[2024-08-27] MEDS: HYDROmorphone HCL 2 MG/ML VL/or syr IV PRN (23:22)
[2024-08-27] MEDS ORDERED: HYDROmorphone HCL 2 MG/ML VL/or syr ONE (23:22)
[2024-08-27] MEDS: GUM (CHEWING) 1 GUM CHEW CHEW ONE (23:51)
[2024-08-28] VITALS (37 sets, daily range): BP systolic 108–159; BP diastolic 52–96; PULSE 90–109; RESP 15–20; TEMP 98.2–99; O2SAT 92–98
[2024-08-28 02:29] LABS: Basophils # (auto) 0 10 ^3/uL (0-0.2); Basophils % (auto) 0.2 % (0.0-2.0); Eosinophils # (auto) 0 10 ^3/uL (0-0.8); Eosinophils % (auto) 0.2 % (0.0-7.0); Hematocrit 28.9 % (36.0-46.0); Hemoglobin 9.3 g/dL (12.2-16.2); Lymphocytes # (auto) 0.9 10 ^3/uL (0.4-5.4); Lymphocytes % (auto) 4.6 % (10.0-50.0); Mean Corpuscular Hemoglobin 26.2 pg (28.0-32.0); Mean Corpuscular Volume 81.8 fL (80.0-100.0); Monocytes # (auto) 0.7 10 ^3/uL (0-1.3); Monocytes % (auto) 3.7 % (0.0-12.0); Neutrophils # (auto) 18.4 10 ^3/uL (1.6-8.6); Neutrophils % (auto) 91.3 % (37.0-80.0); Nucleated Red Blood Cells % 0.1 %; Platelet Count (auto) 236 10^3/uL (140-450); Red Blood Cells 3.53 10^6/uL (4.0-5.20); Red Cell Distribution Width 15.3 % (11.8-14.3); White Blood Cell 20.1 10^3/uL (4.4-10.8)
[2024-08-28] MEDS: SODIUM CHLORIDE 0.9% 300 ML IUPC ONE (02:43)
[2024-08-28] MEDS: SODIUM CHLORIDE 0.9% 1,000 ML IUPC SCH (02:45)
[2024-08-28] MEDS ORDERED: HYDROmorphone HCL 2 MG/ML VL/or syr IV PRN (05:00)
[2024-08-28] MEDS ORDERED: LACTATED RINGER'S 1,000 ML IV SCH (05:30)
[2024-08-28] MEDS: CLINDAMYCIN 900MG IV 50 ML IV SCH (05:44)
[2024-08-28 06:48] LABS: Basophils # (auto) 0.1 10 ^3/uL (0-0.2); Eosinophils # (auto) 0 10 ^3/uL (0-0.8); Lymphocytes # (auto) 0.8 10 ^3/uL (0.4-5.4); Mean Corpuscular Hgb Conc. 32.8 g/dL (32.0-36.0); Monocytes # (auto) 0.8 10 ^3/uL (0-1.3); Monocytes % (auto) 3.5 % (0.0-12.0); Neutrophils # (auto) 21.2 10 ^3/uL (1.6-8.6)
[2024-08-28 06:52] LABS: Basophils % (auto) 0.5 % (0.0-2.0); Hematocrit 27.4 % (36.0-46.0); Lymphocytes % (auto) 3.5 % (10.0-50.0); Mean Corpuscular Hemoglobin 26.8 pg (28.0-32.0); Mean Corpuscular Volume 81.7 fL (80.0-100.0); Neutrophils % (auto) 92.5 % (37.0-80.0); Platelet Count (auto) 246 10^3/uL (140-450); Red Blood Cells 3.36 10^6/uL (4.0-5.20); Red Cell Distribution Width 15.3 % (11.8-14.3); White Blood Cell 22.9 10^3/uL (4.4-10.8)
[2024-08-28] MEDS: LORazepam 2MG/ML-1ML VIAL IV ONE (07:00)
[2024-08-28] MEDS: MAGNESIUM SULFATE 100 ML IV ONE (07:03)
[2024-08-28] MEDS: MAGNESIUM SULFATE 40MG/ML 1,000 ML IV SCH (07:12)
--- NOTE | 2024-08-28 07:58 | DVHPN2 ---
Progress Note Date Seen: Aug 28, 2024 Subjective S: Lochia minimal. Tolerating Ice chips. [place]ayo cath draining clear yellow urine to bag by gravity. Pain relieved with IV analgesics. Reports no REAGAN or vision changes, no epigastric pain or nausea vital signs Vital Sign Date Time Temp Pulse Resp B/P (MAP) Pulse Ox O2 Delivery O2 Flow Rate FiO2 08/28/24 06:45 Room Air 08/28/24 06:45 98.4 90 18 123/75 (91) 98 98.4 08/27/24 23:42 2.0 97 Total Intake and Output 08/27/24 08/27/24 08/28/24 15:00 23:00 07:00 Intake Total 750 ml Output Total 650 ml Balance 100 ml medications Current Medications Medications Dose Ordered Sig/Hai Route Start Time Stop Time Status Last Admin Dose Admin Lactated Ringer's 1,000 ml @ 125 mls/hr Q8H IV 08/26/24 22:15 08/28/24 02:41 125 MLS/HR Sulema Prescott 1 pad PRN PRN TOP 08/26/24 22:15 08/26/24 22:55 1 PAD Sodium Lauryl Sulfate 240 ml PRN PRN TOP 08/26/24 22:15 08/26/24 22:56 240 ML Benzocaine 1 applic PRN PRN TOP 08/26/24 22:15 08/26/24 22:55 1 APPLIC Hydralazine HCl 5 mg Q20MP PRN IV 08/27/24 04:45 Ondansetron HCl 4 mg Q4HP PRN IV 08/27/24 22:00 Clindamycin Phosphate 50 ml @ 50 mls/hr Q8HR IV 08/28/24 05:30 08/28/24 05:44 50 MLS/HR Acetaminophen 1,000 mg ONCE PRN IV 08/28/24 07:00 Labetalol HCl 300 mg Q12H PO 08/28/24 09:30 Hydromorphone HCl 1 mg Q3HPRN PRN IV 08/28/24 05:00 Lactated Ringer's 1,000 ml @ 75 mls/hr [id number] IV 08/28/24 05:30 Magnesium Sulfate 1,000 ml @ 50 mls/hr Q20H IV 08/28/24 07:30 08/28/24 07:12 50 MLS/HR laboratory and microbiology Laboratory Tests 08/28/24 06:31 08/26/24 21:00 Test 08/26/24 21:00 Range/Units Serum Glucose 80 74-106 mg/dL Objective A&O x3 NAD. Afebrile, VSS Chest: heart and lung sounds normal. Breasts: Nipples intact w/o cracks or soreness Abdomen: normal BS, soft, non-tender, no rebound or guarding, fundus firm @ U- 1, Lower abdominal Incision site with Sylke on, open to fresh air same clean, dry and intact. No edema, erythema or induration Extremities: edema decreasing, no tenderness, DTR +2/+2 Lochia - minimal Assessment/Plan 29 yo now Post operative & ppd #1 s/p Primary Section doing well. Anemia Blood Type: O Rh: Positive Breast feeding and Formula feeding Rubella Immune Pain control with IV medications Bowel regimen: Increase fluid intake and fiber in diet, Laxative PRN Discharge Plan: Encourage early ambulation to facilitate recovery. Reassess daily & PRN to determine fitness for discharge Plan discussed with: Patient, Spouse, Other (Pt's sister) Visit Coding OBGYN Date of Service: Aug 28, 2024 Billing Provider: BLESSING ARMSTRONG CNM WIG COMBER Common Visit Codes: [id number] INP/OBS CARE(HIGH) BLESSING ARMSTRONG CNM Aug 28, 2024 07:58
[2024-08-28] MEDS: LABETALOL HCL 200 MG TAB PO SCH (09:05)
[2024-08-28] MEDS: ACETAMINOPHEN IV 1000 MG/100ML (10MG/ML) IV PRN (23:19)
[2024-08-28] MEDS ORDERED: BISACODYL 10 MG RECT SUPP PR PRN (23:30)
[2024-08-29] VITALS (8 sets, daily range): BP systolic 106–139; BP diastolic 56–80; PULSE 80–103; RESP 16–20; TEMP 97.9–99; O2SAT 93–97
[2024-08-29] MEDS: IBUPROFEN 800 MG TAB PO PRN (00:02)
[2024-08-29] MEDS: HYDROcodone-ACET 5/325MG TAB PO PRN ×2 (03:20→09:39)
[2024-08-29] MEDS: SIMETHICONE 80 MG CHEWABLE TABLET PO SCH (05:24)
[2024-08-29] MEDS: DOCUSATE SOD 100 MG CAP PO SCH (09:37)
[2024-08-29] MEDS: DOCUSATE CALCIUM 240 MG CAP PO SCH (10:00)
[2024-08-30] MEDS: CLINDAMYCIN 900MG IV 50 ML IV SCH (00:21)
[2024-08-30 02:43] VITALS: BP 126/71; PULSE 98; RESP 18; TEMP 98.1; O2SAT 97
[2024-08-30 05:08] LABS: RPR Non Reactive (Non Reactive)
--- NOTE | 2024-08-30 05:47 | DVH ---
EXAM: XR Chest, 1 View CLINICAL INDICATION: SOB TECHNIQUE: Frontal view of the chest. COMPARISON: None FINDINGS: LUNGS AND PLEURAL SPACES: Unremarkable. No consolidation. No pneumothorax. HEART: Unremarkable. No cardiomegaly. MEDIASTINUM: Unremarkable. Normal mediastinal contour. BONES/JOINTS: Unremarkable. No acute fracture. OTHER FINDINGS: . None. . IMPRESSION: No acute cardiopulmonary process.
[2024-08-30] MEDS ORDERED: FUROSEMIDE 20 MG TAB PO SCH (06:45)
--- NOTE | 2024-08-30 06:45 | DVHPN2 ---
Progress Note Date Seen: Aug 30, 2024 Subjective POD#3 s/p 1' C/Section S: Pain controlled. Lochia light. Denies any headache, visual changes or epigastric pain. vital signs Vital Sign Date Time Temp Pulse Resp B/P (MAP) Pulse Ox O2 Delivery O2 Flow Rate FiO2 08/30/24 02:43 98.1 98 18 126/71 (89) 97 98.1 08/29/24 18:49 Room Air 08/29/24 07:00 2.0 Total Intake and Output 08/29/24 08/29/24 08/30/24 15:00 23:00 07:00 Output Total 1250 ml Balance -1250 ml medications Current Medications Medications Dose Ordered Sig/Hai Route Start Time Stop Time Status Last Admin Dose Admin Lactated Ringer's 1,000 ml @ 125 mls/hr Q8H IV 08/26/24 22:15 08/28/24 22:15 125 MLS/HR Sulema Prescott 1 pad PRN PRN TOP 08/26/24 22:15 08/26/24 22:55 1 PAD Sodium Lauryl Sulfate 240 ml PRN PRN TOP 08/26/24 22:15 08/26/24 22:56 240 ML Benzocaine 1 applic PRN PRN TOP 08/26/24 22:15 08/26/24 22:55 1 APPLIC Hydralazine HCl 5 mg Q20MP PRN IV 08/27/24 04:45 Ondansetron HCl 4 mg Q4HP PRN IV 08/27/24 22:00 Acetaminophen 1,000 mg ONCE PRN IV 08/28/24 07:00 08/28/24 23:19 1,000 MG Labetalol HCl 300 mg Q12H PO 08/28/24 09:30 08/29/24 20:50 300 MG Hydromorphone HCl 1 mg Q3HPRN PRN IV 08/28/24 05:00 Lactated Ringer's 1,000 ml @ 75 mls/hr [id number] IV 08/28/24 05:30 Cancel Docusate Calcium 240 mg DAILY PO 08/29/24 10:00 Docusate Sodium 100 mg Q12HR PO 08/29/24 10:00 08/29/24 21:51 100 MG Dimethicone 80 mg QID PO 08/29/24 06:00 08/29/24 21:51 80 MG Bisacodyl 10 mg DAILYP PRN IN 08/28/24 23:30 Ibuprofen 800 mg Q8HP PRN PO 08/28/24 23:30 08/29/24 21:51 800 MG Acetaminophen/ Hydrocodone Bitart 1 tab Q4HPRN PRN PO 08/28/24 23:30 08/30/24 05:40 1 TAB Acetaminophen/ Hydrocodone Bitart 2 tab Q4HPRN PRN PO 08/28/24 23:30 08/29/24 03:20 2 TAB Clindamycin Phosphate 50 ml @ 50 mls/hr Q8HR IV 08/30/24 00:00 08/30/24 00:21 50 MLS/HR laboratory and microbiology Laboratory Tests 08/28/24 06:31 08/26/24 21:00 Test 08/26/24 21:00 Range/Units Serum Glucose 80 74-106 mg/dL Objective O: AFVSS Chest: heart and lung sounds normal. Abd soft, non-tender, fundus firm, BS, no rebound or guarding, Incision - dressing and incision clean, dry, intact Ext Neg Homans, Non-tender, edema Lochia - minimal Labs Pending Assessment/Plan POD#3 s/p 1' C/Section LE Edema Dyspnea, resolved Plan: Continue current care D/C planning, pending Hospitalist consult placed yesterday for O2 desat (now appears resolved) Labs pending for today lasix 40mg IV BID Plan discussed with: Patient, Spouse, Other (Pt's sister) Visit Coding OBGYN Date of Service: Aug 30, 2024 Billing Provider: ZITA PEDERSON DO GARNISHMENT SPECIALIST Common Visit Codes: [id number] DISCH DAY >30MIN ZITA PEDERSON DO Aug 30, 2024 06:45
[2024-08-30] MEDS ORDERED: LABE300T5 PO (06:57)
[2024-08-30 07:00] VITALS: BP 134/85; PULSE 88; RESP 18; TEMP 98.6; O2SAT 97
[2024-08-30 07:35] LABS: Basophils # (auto) 0 10 ^3/uL (0-0.2); Basophils % (auto) 0.3 % (0.0-2.0); Eosinophils # (auto) 0.2 10 ^3/uL (0-0.8); Eosinophils % (auto) 1.8 % (0.0-7.0); Hematocrit 22.4 % (36.0-46.0); Hemoglobin 7.2 g/dL (12.2-16.2); Lymphocytes # (auto) 1.4 10 ^3/uL (0.4-5.4); Lymphocytes % (auto) 12.3 % (10.0-50.0); Mean Corpuscular Hgb Conc. 31.9 g/dL (32.0-36.0); Mean Corpuscular Volume 81.6 fL (80.0-100.0); Monocytes # (auto) 0.9 10 ^3/uL (0-1.3); Monocytes % (auto) 8.1 % (0.0-12.0); Neutrophils % (auto) 77.5 % (37.0-80.0); Nucleated Red Blood Cells % 0.1 %; Platelet Count (auto) 267 10^3/uL (140-450); Red Blood Cells 2.75 10^6/uL (4.0-5.20); Red Cell Distribution Width 15.5 % (11.8-14.3); White Blood Cell 11.6 10^3/uL (4.4-10.8)
[2024-08-30 07:53] LABS: Chloride 106 mmol/L (98-107); Sodium 139 mmol/L (136-145)
[2024-08-30 07:54] LABS: Anion Gap 8 (5-15); Carbon Dioxide 25 mmol/L (20-31)
[2024-08-30 08:00] LABS: BUN/Creatinine Ratio 15.2 (10.0-20.0); Blood Urea Nitrogen 10 mg/dL (9-23); Glucose 94 mg/dL (74-106)
[2024-08-30] MEDS ORDERED: HYDR-4072 PO (09:00)
[2024-08-30] MEDS ORDERED: IBUP-1456 PO (09:10)
[2024-08-30] MEDS ORDERED: FERR30CA PO (09:10)
--- NOTE | 2024-08-30 09:13 | DVHDS2 ---
Obstetrics Discharge Summary Obstetrics Discharge Summary Date of Admission: Aug 26, 2024 Date of Discharge: Aug 30, 2024 Reason For Admission: Induction of Labor (preeclampsia) Procedures: NST, Ultrasound, Mgmt of Obstetrics Compli (preeclampsia) Intrapartum Procedures: (primary LTCS) Procedures: Antibiotics, Hct/date: (08/30/24), Hgb/date: (08/30/24) Operative Complicat: None Discharge Diagnosis: Term -Delivered, Preeclampsia Discharge Information: Activity (as tolerated, no heavy lifting and nothing in the vagina for 6 weeks), Diet (Routine), Medications (Rx sent), Instructions (Routine), Discharge to (Home), Accompanied by (partner), Discarge date (08/30/24) Visit Coding OBGYN Date of Service: Aug 30, 2024 Billing Provider: JESSENIA JIMENEZ CNM PLATFORM ATTENDANT Common Visit Codes: [id number] DISCH DAY <30MIN JESSENIA JIMENEZ CNM Aug 30, 2024 09:13
[2024-08-30 10:46] VITALS: BP 106/58; PULSE 94; RESP 18; TEMP 98.9; O2SAT 97
[2024-08-30 13:15] VITALS: PULSE 89; RESP 18; TEMP 98.6; O2SAT 99
[2024-08-30] MEDS ORDERED: FUROSEMIDE 40 MG TAB PO SCH (18:00)
== END 2024-08-30 13:15 | disposition home or self-care (01) | DRG 540 ==
LOC: LDRP 19:05 → OBSVTOIN 22:01 → LDRP 23:27
PROVIDERS: ADMIT Obstetrics & Gynecology; ATTEND Obstetrics & Gynecology
PROC: 10D00Z1 Extraction of Products of Conception, Low, Open Approach (ICD-10-PCS; principal; 2024-08-27 21:30)
DX: O14.94 Unspecified pre-eclampsia, complicating childbirth (principal); O99.214 Obesity complicating childbirth; E66.01 Morbid (severe) obesity due to excess calories; O99.02 Anemia complicating childbirth; O76 Abnormality in fetal heart rate and rhythm complicating labor and delivery; Z3A.38 38 weeks gestation of pregnancy; Z37.0 Single live birth; Z88.0 Allergy status to penicillin; Z88.1 Allergy status to other antibiotic agents; Z79.899 Other long term (current) drug therapy
CPT/HCPCS: 36415; 59025; 71045; 76818; 80048; 80053; 80307; 81001; 81002; 82570; 83735; 84156; 84550; 85025; 85379; 85610; 85730; 86592; 86780; 86803; 86850; 86900; 86901; 94760; 94762; 96360; 96361; 96365; 96366; G0378; J0131; J1100; J2003; J2405; J2590; J2704; J3490